=== PATIENT | female | born 1950 | race Caucasian/White ===

== ENCOUNTER 2018-05-21 12:25 | Emergency (ER) | payer MEDICARE, MEDICAID, SELFPAY ==
[2018-05-21 13:01] VITALS: BP 129/76; PULSE 87; RESP 20; TEMP 38; O2SAT 97
--- NOTE | 2018-05-21 13:25 | DI.RAD.S_ITS ---
PROCEDURE: XR CHEST 2V INDICATIONS: cough TECHNIQUE: 2 views of the chest were acquired. COMPARISON: None. FINDINGS: Surgical changes and devices: Spine fixation hardware. Lungs and pleura: Lungs are clear. No pleural effusions or pneumothorax. Lungs hyperinflated suggesting COPD. Mediastinum: Mediastinal contours are normal. Heart size is normal. Bones and chest wall: No suspicious bony abnormalities. Soft tissues appear unremarkable. IMPRESSION: No acute cardiopulmonary disease process. Dictated by: Aranza Mcgarry MD, PhD on 05/21/2018 at 13:54 Approved by: Aranza Mcgarry MD, PhD on 05/21/2018 at 13:54
--- NOTE | 2018-05-21 14:14 | ED.SOB ---
HPI - SOB/Dyspnea <Rosa Maria Duncan PA-C - Last Filed: 05/21/18 22:06> General Chief Complaint: Shortness of Breath/Dyspnea Stated Complaint: cough,trouble breathing,not sleeping,weight loss Time Seen by Provider: 05/21/18 14:10 Source: patient Mode of arrival: ambulatory Limitations: no limitations History of Present Illness This 67-year-old female comes to ED secondary to the day history of sudden onset of body aches, chills and sweats, and hoarse cough. She states that she feels like she is congested deep in her chest but rarely able to bring up sputum. She states she is tired because she is up all night coughing, and all day as well. She states that she has not checked her temperature. She states that she does have a history of reactive airways rarely in the past needing an inhaler, but does feel like she has been more short of breath with this illness. She states that her left ear is a little bit congested otherwise no sore throat, earache, etc. She denies any other new complaints such as chest pain or rash. She states her breathing feels improved after nebulizer treatment. Related Data Home Medications Medication Instructions Recorded Confirmed gabapentin [Neurontin] 300 mg PO TID #0 09/26/10 05/21/18 alprazolam 0.25 mg PO BEDTIME 05/21/18 05/21/18 alprazolam 0.5 mg PO BID 05/21/18 05/21/18 bupropion HCl 100 mg PO BID 05/21/18 05/21/18 fluticasone 1 spray INTRANASAL DIRECTED 05/21/18 05/21/18 paroxetine HCl 40 mg PO DAILY 05/21/18 05/21/18 trazodone 100 mg PO BEDTIME 05/21/18 05/21/18 Previous Rx's Medication Instructions Recorded albuterol sulfate 2 inhalation INHALATION Q4H PRN 05/21/18 #8.5 gram oseltamivir [Tamiflu] 75 mg PO Q12H 5 Days #10 cap 05/21/18 promethazine-codeine 5 ml PO Q4-6H PRN #118 ml 05/21/18 Allergies Allergy/AdvReac Type Severity Reaction Status Date / Time quinine [QUININE] Allergy Unknown Unverified 06/17/17 12:57 KIWI Allergy Severe ANAPHYLAXIS Uncoded 06/17/17 12:57 JOYCE Allergy Severe ANAPHYLAXIS Uncoded 06/17/17 12:57 MSG AdvReac Intermediate DIARRHEA Uncoded 06/17/17 12:57 METAL AdvReac Mild RASH Uncoded 06/17/17 12:57 Review of Systems <Rosa Maria Duncan PA-C - Last Filed: 05/21/18 22:06> Review of Systems ROS Unobtainable: All systems reviewed & are unremarkable except as noted in HPI and below PFSH <Rosa Maria Duncan PA-C - Last Filed: 05/21/18 22:06> Medical History Chronic pain syndrome (Acute) Reactive airways dysfunction syndrome (Acute) Surgical History History of tonsillectomy Status post delivery Status post hysterectomy Social History Smoking Status: Former smoker Social History Smoking Status: Former smoker Exam <Rosa Maria Duncan PA-C - Last Filed: 05/21/18 22:06> Narrative Exam Narrative: GENERAL APPEARANCE: Diminutive female sitting comfortably HEAD: No sinus TTP. EYES: PERRL, EOMI. EARS: Normal auditory canals, TMS intact, partly occluded by cerumen ORAL CAVITY: Normal oropharynx. THROAT: Mild erythema, PND noted, no exudate NECK/THYROID: Neck supple, full range of motion, no cervical lymphadenopathy. LUNGS: Initially some generalized wheezes and rhonchi without crackles, coarse cough on exam. Following nebulizer treatment mild expiratory wheeze with good air entry, occasional cough HEART: RRR without murmur, nl S1, S2, no S3 or S4. EXTREMITIES: No edema, no calf tenderness DERMATOLOGIC: No exanthem Initial Vital Signs Initial Vital Signs: Vital Signs Temperature 100.4 F H 05/21/18 13:01 Pulse Rate 87 05/21/18 13:01 Respiratory Rate 20 05/21/18 13:01 Blood Pressure 129/76 05/21/18 13:01 Pulse Oximetry 97 05/21/18 13:01 <Linda Hanna DO - Last Filed: 05/22/18 08:50> Initial Vital Signs Initial Vital Signs: Vital Signs Temperature 100.4 F H 05/21/18 13:01 Pulse Rate 87 05/21/18 13:01 Respiratory Rate 20 05/21/18 13:01 Blood Pressure 129/76 05/21/18 13:01 Pulse Oximetry 97 05/21/18 13:01 Course <Rosa Maria Duncan PA-C - Last Filed: 05/21/18 22:06> Orders Ordered: Discontinued Medications Albuterol/Ipratropium (Duoneb) 3 ml INH Q1H PRN PRN Reason: Shortness Of Breath Last Admin: 05/21/18 14:58 Dose: 3 ml Vital Signs - 8 hr 05/21/18 14:16 05/21/18 15:05 05/21/18 16:05 Temperature 98.1 F 98.2 F Pulse Rate 88 77 93 H Respiratory Rate 18 20 18 Blood Pressure 130/74 Blood Pressure [Left Arm] 164/88 H Pulse Oximetry 95 98 96 <Linda Hanna DO - Last Filed: 05/22/18 08:50> Orders Ordered: Discontinued Medications Albuterol/Ipratropium (Duoneb) 3 ml INH Q1H PRN PRN Reason: Shortness Of Breath Last Admin: 05/21/18 14:58 Dose: 3 ml Vital Signs - 8 hr 05/21/18 14:16 05/21/18 15:05 05/21/18 16:05 Temperature 98.1 F 98.2 F Pulse Rate 88 77 93 H Respiratory Rate 18 20 18 Blood Pressure 130/74 Blood Pressure [Left Arm] 164/88 H Pulse Oximetry 95 98 96 MDM - SOB/Dyspnea <Rosa Maria Duncan PA-C - Last Filed: 05/21/18 22:06> Lab Data Lab Results 05/21/18 Range/Units 13:00 Influenza A & B (PCR) Positive, type a A (Negative) Imaging Data Chest x-ray: Radiologist's impression: KongHarmony E 67 F 1950 [address] [address] XRay Report Signed Patient: Harmony Kong EMR#: [id number] : 1950Acct:[id number] Age/Sex: 67 / FDate of Service: 05/21/18 Loc: ED Accession Number: [id number] Procedure: XR chest 2V Ordering Provider: Rosa Maria Duncan P.A-C PROCEDURE: XR CHEST 2V INDICATIONS: cough TECHNIQUE: 2 views of the chest were acquired. COMPARISON: None. FINDINGS: Surgical changes and devices: Spine fixation hardware. Lungs and pleura: Lungs are clear. No pleural effusions or pneumothorax. Lungs hyperinflated suggesting COPD. Mediastinum: Mediastinal contours are normal. Heart size is normal. Bones and chest wall: No suspicious bony abnormalities. Soft tissues appear unremarkable. IMPRESSION: No acute cardiopulmonary disease process. Dictated by: Aranza Mcgarry MD, PhD on 05/21/2018 at 13:54 Approved by: Aranza Mcgarry MD, PhD on 05/21/2018 at 13:54 <Linda C Jacques, DO - Last Filed: 05/22/18 08:50> Lab Data Lab Results 05/21/18 Range/Units 13:00 Influenza A & B (PCR) Positive, type a A (Negative) Discharge Plan Departure Patient Disposition: Home Clinical Impression: Influenza A, Mild intermittent reactive airways dysfunction syndrome with acute exacerbation Discharge Date/Time: 05/21/18 16:05 Interventions: ED Discharge Assessment Last Done: 05/21/18 16:05 Activity Restrictions/Additional Instructions: Please return as we talked about if you have acutely worsening symptoms, i.e. high fever not responding to [id number] medicines, difficulty breathing not responding to your inhaler, etc. Otherwise, please rest at home. You can use the prescription cough syrup as needed to help sleep. You may also wish to try Mucinex twice daily which is an expectorant and may help loosen up your lung congestion. Please use the inhaler as often as needed to help your type chest and wheeze. This may help your cough as well since you do have some airway sensitivity/reactive airways. Start the influenza medicine as soon as you pick it up and take it for 5 days. Prescriptions: New promethazine-codeine 6.25-10 mg/5 mL syrup 5 ml PO Q4-6H PRN (Reason: cough) Qty: 118 RF: 0 oseltamivir [Tamiflu] 75 mg capsule 75 mg PO Q12H 5 Days Qty: 10 RF: 0 albuterol sulfate 90 mcg/actuation HFA aerosol inhaler 2 inhalation INHALATION Q4H PRN (Reason: cough/shortness of breath) Qty: 8.5 RF: 0 No Action gabapentin [Neurontin] 300 MG capsule 300 mg PO TID Qty: 0 RF: 0 bupropion HCl 100 mg tablet sustained-release 12 hr 100 mg PO BID RF: 0 alprazolam 0.5 mg tablet 0.5 mg PO BID RF: 0 alprazolam 0.5 mg tablet 0.25 mg PO BEDTIME RF: 0 trazodone 100 mg tablet 100 mg PO BEDTIME RF: 0 paroxetine HCl 40 mg tablet 40 mg PO DAILY RF: 0 fluticasone 50 mcg/actuation spray,suspension 1 spray Intranasal DIRECTED RF: 0 Referrals: Art Phillip MD [Primary Care Provider] - <Linda Hanna DO - Last Filed: 05/22/18 08:50> Cosign ED Attending Cosignature Attestation: I was immediately available in the department for consultation. This documentation has been reviewed and I agree with assessment and plan. Supervised by Linda Hanna DO
[2018-05-21 14:16] VITALS: BP 164/88; PULSE 88; RESP 18; TEMP 36.7; O2SAT 95
[2018-05-21] MEDS: ALBUTEROL/IPRATROPIUM 3 ML AMPUL INH (14:58)
[2018-05-21 15:05] VITALS: PULSE 77; RESP 20; O2SAT 98
[2018-05-21 16:05] VITALS: BP 130/74; PULSE 93; RESP 18; TEMP 36.8; O2SAT 96
== END 2018-05-21 16:05 | disposition home or self-care (01) ==
PROVIDERS: Emergency Provider Internal Medicine; Family Provider Family Medicine; PCP Family Medicine
DX: J10.1 Influenza due to other identified influenza virus with other respiratory manifestations (principal); J68.3 Other acute and subacute respiratory conditions due to chemicals, gases, fumes and vapors
CPT/HCPCS: 71046; 87400; 94640; 99282; 99284

== ENCOUNTER 2018-08-18 14:27 | Emergency (ER) | payer MEDICARE, MEDICAID, SELFPAY ==
--- NOTE | 2018-08-18 14:29 | ED_ITS ---
HPI - Extremity Injury (Lower) General Chief Complaint: Extremity Injury, Lower Stated Complaint: Twisted Lt Foot Time Seen by Provider: 08/18/18 14:28 Source: patient Mode of arrival: wheelchair Limitations: no limitations History of Present Illness HPI Narrative: [age] year female here for evaluation of left foot injury. Patient states she injured approximately 1 hour prior to arrival here in the emergency department. She states she twisted her ankle. No other injuries reported from the event. Related Data Home Medications Medication Instructions Recorded Confirmed gabapentin [Neurontin] 300 mg PO TID #0 09/26/10 05/21/18 alprazolam 0.25 mg PO BEDTIME 05/21/18 05/21/18 alprazolam 0.5 mg PO BID 05/21/18 05/21/18 bupropion HCl 100 mg PO BID 05/21/18 05/21/18 fluticasone propionate 1 spray INTRANASAL DIRECTED 05/21/18 05/21/18 paroxetine HCl 40 mg PO DAILY 05/21/18 05/21/18 trazodone 100 mg PO BEDTIME 05/21/18 05/21/18 Previous Rx's Medication Instructions Recorded albuterol sulfate 2 inhalation INHALATION Q4H PRN 05/21/18 #8.5 gram promethazine-codeine 5 ml PO Q4-6H PRN #118 ml 05/21/18 tramadol 50 mg PO TID PRN #10 tab 08/18/18 Allergies Allergy/AdvReac Type Severity Reaction Status Date / Time quinine [QUININE] Allergy Unknown Verified 08/18/18 14:32 KIWI Allergy Severe ANAPHYLAXIS Uncoded 06/17/17 12:57 JOYCE Allergy Severe ANAPHYLAXIS Uncoded 06/17/17 12:57 MSG AdvReac Intermediate DIARRHEA Uncoded 06/17/17 12:57 METAL AdvReac Mild RASH Uncoded 06/17/17 12:57 Review of Systems Constitutional Denies headache(s) ENT Ears, Nose, Mouth, and Throat: Denies headache(s) Cardiovascular Denies chest pain and Denies dyspnea Respiratory Denies dyspnea Gastrointestinal Gastrointestinal: Denies abdominal pain Musculoskeletal Denies tingling Comments: Left foot pain Integumentary/Breasts Comments: Bruising around the left foot Neurologic Denies headache(s) and Denies tingling Hematologic/Lymphatic Denies easy bleeding [facility] Medical History Chronic pain syndrome (Acute) Reactive airways dysfunction syndrome (Acute) Surgical History (Updated 07/07/17 @ 06:20 by Conversion Provider) History of tonsillectomy Status post delivery Status post hysterectomy Social History Smoking Status: Former smoker Social History Smoking Status: Former smoker Exam Initial Vital Signs Initial Vital Signs: Vital Signs Temperature 97.4 F L 08/18/18 14:30 Pulse Rate 85 08/18/18 14:30 Respiratory Rate 14 08/18/18 14:30 Blood Pressure 135/74 08/18/18 14:30 Pulse Oximetry 95 08/18/18 14:30 Resp Effort & Inspection: normal respiratory effort Skin Other: Bruising on the dorsum aspect the left foot from the 3rd toe laterally. Neuro Other: Sensation to light touch left lower extremity Extrem Other: Left proximal fibula unremarkable. Left ankle unremarkable. Patient is tender to palpation along the dorsum in the lateral aspect of her left foot and along the base of her 5th metatarsal. Procedures Orthopedic Splinting/Casting Injury #1: Side: left Lower Extremity Injury Location: foot Lower Extremity Immobilizer: posterior splint Other Orthopedic Equipment: crutches Post splinting neuro exam: intact and no change Post splinting vascular exam: intact Placed by: Nursing Course Orders Ordered: ED Orders 08/18/18 14:30 XR foot LT min 3V Stat Discontinued Medications Ibuprofen (Advil) 400 mg PO NOW ONE Stop: 08/18/18 14:32 Last Admin: 08/18/18 14:39 Dose: 400 mg Vital Signs - 8 hr 08/18/18 14:30 Temperature 97.4 F L Pulse Rate 85 Respiratory Rate 14 Blood Pressure 135/74 Pulse Oximetry 95 MDM - Extremity Injury (Lower) Imaging Data Foot x-ray: Radiologist's impression: [address] [address] XRay Report Signed Patient: Harmony Kong EMR#: [id number] : 1950Acct:[id number] Age/Sex: 67 / FDate of Service: 08/18/18 Loc: ED Accession Number: [id number] Procedure: XR foot LT min 3V Ordering Provider: Lee Galdamez D.O. PROCEDURE: XR FOOT LT MIN 3V INDICATIONS: Lateral foot pain after injury TECHNIQUE: 3 views of the foot were acquired. COMPARISON: None. FINDINGS: Bones: There is a mildly displaced fracture of the distal 5th metatarsal diaphysis. Soft tissues: No tibiotalar joint effusion. Achilles tendon appears normal. IMPRESSION: Mildly displaced 5th metatarsal fracture. Dictated by: Tay English M.D. on 08/18/2018 at 14:53 Approved by: Tay English M.D. on 08/18/2018 at 14:54 [facility] Narrative Medical decision making narrative: Patient is neurovascularly intact. X-ray shows a fracture of the 5th metatarsal. She is placed in a posterior splint and placed in crutches. Given follow-up instructions and return precautions. She expressed understanding and agreement with plan. Discharge Plan Departure Patient Disposition: Home Clinical Impression: Foot fracture, left Qualifiers: Encounter type: initial encounter Fracture type: closed Qualified Code(s): S92.902A - Unspecified fracture of left foot, initial encounter for closed fracture Instructions: How to Use Crutches, DI for Foot Fracture, How to Take Care of Your Splint Activity Restrictions/Additional Instructions: You do need to stay off of your foot and use the crutches. This splint needs to stay on and stay clean and stay dry. Contact Dr. Phillip his office for a follow-up. Also contact the [facility] at [phone] for follow-up. Return to the emergency department for any new or worsening symptoms Prescriptions: New tramadol 50 mg tablet 50 mg PO TID PRN (Reason: pain) Qty: 10 RF: 0 No Action gabapentin [Neurontin] 300 MG capsule 300 mg PO TID Qty: 0 RF: 0 bupropion HCl 100 mg tablet sustained-release 12 hr 100 mg PO BID RF: 0 alprazolam 0.5 mg tablet 0.5 mg PO BID RF: 0 alprazolam 0.5 mg tablet 0.25 mg PO BEDTIME RF: 0 trazodone 100 mg tablet 100 mg PO BEDTIME RF: 0 paroxetine HCl 40 mg tablet 40 mg PO DAILY RF: 0 fluticasone propionate 50 mcg/actuation spray,suspension 1 spray Intranasal DIRECTED RF: 0 promethazine-codeine 6.25-10 mg/5 mL syrup 5 ml PO Q4-6H PRN (Reason: cough) Qty: 118 RF: 0 albuterol sulfate 90 mcg/actuation HFA aerosol inhaler 2 inhalation INHALATION Q4H PRN (Reason: cough/shortness of breath) Qty: 8.5 RF: 0 Referrals: Art Phillip MD [Primary Care Provider] -
[2018-08-18 14:30] VITALS: BP 135/74; PULSE 85; RESP 14; TEMP 36.3; O2SAT 95; BMI 14.8
[2018-08-18] MEDS: IBUPROFEN 400 MG TABLET PO (14:39)
--- NOTE | 2018-08-18 14:44 | PC.NURSE ---
Ice pack offered and pt refused as iced it at home and its still cold.
== END 2018-08-18 15:30 | disposition home or self-care (01) ==
PROVIDERS: Emergency Provider Emergency Medicine; Family Provider Family Medicine; PCP Family Medicine
DX: S92.902A Unspecified fracture of left foot, initial encounter for closed fracture (principal)
CPT/HCPCS: 29515; 73630; 99282; 99283

== ENCOUNTER → 2020-05-23 13:36 | Outpatient (CLI) | payer MEDICARE, MEDICAID, SELFPAY ==
[2020-05-23] MEDS: COVID-19 VACC #1, MRNA(MOD) 100 MCG/0.5 ML VIAL IM (13:49)
== END ==
PROVIDERS: Family Provider Family Medicine; PCP Family Medicine; Visit Provider Internal Medicine
DX: Z23 Encounter for immunization (principal)
CPT/HCPCS: 0011A; 91301

== ENCOUNTER → 2020-06-20 13:09 | Outpatient (CLI) | payer MEDICARE, MEDICAID, SELFPAY ==
[2020-06-20] MEDS: COVID-19 VACC #2, MRNA(MOD) 100 MCG/0.5 ML VIAL IM (13:26)
== END ==
PROVIDERS: Family Provider Family Medicine; PCP Family Medicine; Visit Provider Internal Medicine
DX: Z23 Encounter for immunization (principal)
CPT/HCPCS: 0012A; 91301

== ENCOUNTER → 2020-09-07 13:33 | Outpatient (CLI) | payer MEDICARE, MEDICAID, SELFPAY ==
--- NOTE | 2020-09-07 | DI.CT.S_ITS ---
PROCEDURE: CT CHEST WO CON INDICATIONS: Cough TECHNIQUE: Noncontrast 5 mm thick sections acquired from the pulmonary apices to the posterior costophrenic angles. 1 mm lung window, 5 mm thick coronal and sagittal and 7 mm axial MIP reformats were then acquired. For radiation dose reduction, the following was used: automated exposure control, adjustment of mA and/or kV according to patient size. COMPARISON: None. FINDINGS: Image quality: Excellent. Lungs and pleura: Lung nodules are present: Nodule 1: 3 mm; right upper lobe; series 3, image 145; solid. Nodule 2: 5 mm; right upper lobe; series 3 image 156; ground-glass. Mild emphysema. Subpleural septal thickening and mild pulmonary fibrosis in right upper lobe. No acute air space opacities. No pleural effusions or pneumothorax. Central and peripheral airways are patent and normal in caliber. Mediastinum: Heart size is normal. No pericardial effusion. Severe coronary artery calcification. No mediastinal adenopathy by size criteria. Thoracic aorta and central pulmonary arteries are normal in size. Esophagus is normal in caliber. No hiatal hernia. Bones and chest wall: No suspicious bony lesions. No vertebral body compression fractures. No axillary or supraclavicular adenopathy by size criteria. Thyroid gland is unremarkable. Abdomen: Visualized upper abdominal solid organs and bowel loops appear normal in the absence of contrast. IMPRESSION: 1. There are a couple of lung nodules in right upper lobe. Please see enclosed follow-up recommendation. 2. Mild emphysema. 3. Subpleural septal thickening and mild pulmonary fibrosis in right upper lobe. 4. Severe coronary artery calcification. Fleischner Society criteria for SOLID lung nodule followup. Nodule size (mm)Low-risk patientHigh-risk patient?4No follow-up neededFollow-up at 12 mo; if no change, no further follow-up>[id number] CT at 12 mo; if no change, no further follow-up needed.Initial follow-up CT at 6-12 mo, then 18-24 mo if no change. >6-8Initial follow-up CT at 6-12 mo, then 18-24 mo if no change. Initial follow-up CT at 3-6 mo, then 9-12 mo and 24 mo if no change. >8Follow-up CT at 3, 9, 24 mo. Or PET and/or biopsy.Same as for low-risk pts. Fleischner Society criteria for SUB-SOLID lung nodule followup. Solitary pure ground-glass nodules5 mm or lessNo followup needed. >5 mm3 mo follow-up CT to confirm persistence. Then annual CT for 3 years. Part-solid nodules3 mo follow-up CT to confirm persistence. If persistent with solid component <5 mm, annual CT for at least 3 years. If solid component is 5 mm or more, biopsy or surgical resection. Consider PET-CT for lesions > 10 mm. Multiple sub-solid nodulesPure ground glass nodules [address] at 2 and 4 years. Pure ground glass nodules >5 mm without dominant lesion. [address] to confirm persistence, then annual followup CT for at least 3 years. Dominant nodule(s) with part-solid or solid component. [address] to confirm persistence. If persistent, consider biopsy or surgical resection, deepak if lesions have >5 mm solid component. Dictated by: Richard Hastings M.D. on 09/07/2020 at 16:40 Approved by: Richard Hastings M.D. on 09/07/2020 at 18:11
== END ==
PROVIDERS: Family Provider Family Medicine; PCP Family Medicine; Referring Provider Family Medicine; Visit Provider Family Medicine
DX: R05 Cough (principal); R91.8 Other nonspecific abnormal finding of lung field; J43.9 Emphysema, unspecified; J84.10 Pulmonary fibrosis, unspecified; I25.10 Atherosclerotic heart disease of native coronary artery without angina pectoris
CPT/HCPCS: 71250

== ENCOUNTER → 2020-11-30 09:54 | Outpatient (CLI) | payer MEDICARE, MEDICAID, SELFPAY ==
--- NOTE | 2020-11-30 | DI.RAD.S_ITS ---
PROCEDURE: XR RIBS RT MIN 3V W CXR 1V INDICATIONS: Rib pain TECHNIQUE: 3 views of the right ribs were acquired, along with a single view chest. COMPARISON: [facility], CT, CT CHEST WO CON, 09/07/2020, 13:55. FINDINGS: Surgical changes and devices: ACDF. Right shoulder anchors. Bones and chest wall: No fractures or dislocations. No suspicious bony lesions. Mild scoliosis. Overlying soft tissues appear unremarkable. Lungs and pleura: No pleural effusions or pneumothorax. Lungs appear clear. Mediastinum: Mediastinal contours appear normal. Heart size is normal. IMPRESSION: No displaced right rib fracture. Lungs are clear. Dictated by: Travon Steele M.D. on 11/30/2020 at 10:19 Approved by: Travon Steele M.D. on 11/30/2020 at 10:21
== END ==
PROVIDERS: Family Provider Family Medicine; PCP Family Medicine; Referring Provider Family Medicine; Visit Provider Family Medicine
DX: R07.81 Pleurodynia (principal); Z98.1 Arthrodesis status
CPT/HCPCS: 71101

== ENCOUNTER 2022-01-15 17:15 | Emergency (ER) | payer MEDICARE, MEDICAID, SELFPAY ==
[2022-01-15 17:22] VITALS: BP 133/71; PULSE 97; RESP 20; TEMP 36.4; O2SAT 97
--- NOTE | 2022-01-15 17:25 | DI.CT.S_ITS ---
PROCEDURE: CT HEAD/BRAIN WO CON INDICATIONS: fall TECHNIQUE: Noncontrast 4.5 mm thick angled axial sections acquired from the foramen magnum to the vertex, with coronal and sagittal reformats. For radiation dose reduction, the following was used: automated exposure control, adjustment of mA and/or kV according to patient size. COMPARISON: [facility], CT, HEAD WITHOUT CONTRAST, 06/03/2010, 10:47. FINDINGS: Image quality: Excellent. CSF spaces: Basal cisterns are patent. No extra-axial fluid collections. Ventricles are normal in size and shape. Brain: No midline shift. No intracranial masses or hemorrhage. Bellamy-white matter interface is normal. Skull and face: Calvarium and visualized facial bones are intact, without suspicious lesions. Sinuses: Visualized sinuses and mastoids are clear. IMPRESSION: Normal CT of the brain Approved by: Troy Buenrostro M.D. on 01/15/2022 at 17:36
--- NOTE | 2022-01-15 17:25 | DI.CT.S_ITS ---
PROCEDURE: CT CERVICAL SPINE WO CON INDICATIONS: fall TECHNIQUE: Noncontrast 3 mm thick sections acquired from the skull base to the T4 level. Sagittal and coronal reformats were then constructed. For radiation dose reduction, the following was used: automated exposure control, adjustment of mA and/or kV according to patient size. COMPARISON: None. FINDINGS: Image quality: Excellent. Bones: No fractures or dislocations. Visualized superior ribs are intact. Well-healed C4-5 interbody fusion. There is also interbody fusion at C5-6 and C6-7 with persistent lucency around the interbody grafts. Anterior plate and screw hardware is present. There is periprosthetic lucency around the C6 screws as well. C3-4 disc space narrowing with hypertrophic facet joints results in moderate central and bilateral foraminal stenosis. Soft tissues: Prevertebral soft tissues are normal in thickness. No paravertebral hematomas. No apical pneumothoraces. IMPRESSION: 1. No evidence of fracture or malalignment. 2. C5-6 and C6-7 with suboptimal graft incorporation and evidence of loosening of the C6 anterior screws. Approved by: Troy Buenrostro M.D. on 01/15/2022 at 17:33
[2022-01-15 20:26] VITALS: BP 181/86; PULSE 103; RESP 14; TEMP 36.6; O2SAT 98
[2022-01-15] MEDS: ACETAMINOPHEN 325 MG TABLET 650 MG PO (21:12)
--- NOTE | 2022-01-15 21:31 | ED.HEATRA ---
HPI - Head Injury General Chief complaint: Head Injury Stated complaint: head pain for a week Time Seen by Provider: 01/15/22 20:59 Source: patient Mode of arrival: Wheelchair History of Present Illness HPI Narrative: Patient is a 71-year-old female history of COPD presenting today after ground level mechanical fall 5 days ago. She hit her head he not pass out that she knows of she has not had any nausea or vomiting. He has had persistent headache. No numbness tingling or weakness. However she is now complaining of dizziness and maybe some shortness of breath. She has a history of vertigo she says this is not her normal vertigo. She has had head CT and a CT cervical spine which are both negative. She states that she has been taking 15x 500 mg tablets of Tylenol a day. She denies any abdominal pain nausea vomiting. Related Data Home Medications Medication Instructions Recorded Confirmed gabapentin 300 mg capsule 300 mg PO TID ##0 09/26/10 05/21/18 (Neurontin) alprazolam 0.5 mg tablet 0.25 mg PO BEDTIME 05/21/18 05/21/18 alprazolam 0.5 mg tablet 0.5 mg PO BID 05/21/18 05/21/18 bupropion HCl 100 mg tablet,12 hr 100 mg PO BID 05/21/18 05/21/18 sustained-release fluticasone propionate 50 1 spray intranasal DIRECTED 05/21/18 05/21/18 mcg/actuation nasal spray,suspension paroxetine HCl 40 mg tablet 40 mg PO DAILY 05/21/18 05/21/18 trazodone 100 mg tablet 100 mg PO BEDTIME 05/21/18 05/21/18 Previous Rx's Medication Instructions Recorded albuterol sulfate 90 mcg/actuation 2 inhalation inhalation Q4H PRN 05/21/18 aerosol inhaler cough/shortness of breath #8.5 grams promethazine 6.25 mg-codeine 10 5 ml PO Q4-6H PRN cough #118 mL 05/21/18 mg/5 mL syrup acetaminophen 300 mg-codeine 30 mg 1 tab PO Q4-6H PRN pain #10 tabs 08/18/18 tablet (Tylenol-Codeine #3) tramadol 50 mg tablet 50 mg PO TID PRN pain #10 tabs 08/18/18 Allergies Allergy/AdvReac Type Severity Reaction Status Date / Time quinine [QUININE] Allergy Unknown Verified 08/18/18 14:32 tramadol Allergy Verified 08/18/18 15:24 KIWI Allergy Severe ANAPHYLAXIS Uncoded 06/17/17 12:57 JOYCE Allergy Severe ANAPHYLAXIS Uncoded 06/17/17 12:57 MSG AdvReac Intermediate DIARRHEA Uncoded 06/17/17 12:57 METAL AdvReac Mild RASH Uncoded 06/17/17 12:57 Review of Systems Review of Systems Narrative: GENERAL: Denies chills, fatigue, malaise, fever, sweats, travel HEENT: Denies sinus pain, ear pain, sore throat, difficulty swallowing, neck pain RESPIRATORY: Denies dyspnea, cough, wheezing, hemoptysis, sputum. CARDIOVASCULAR: Denies chest pain, palpitations, orthopnea, edema GASTROINTESTINAL: Denies nausea, vomiting, abdominal pain, diarrhea, constipation, melena. : Denies dysuria, frequency, incontinence, hematuria, urinary retention, flank pain. MUSCULOSKELETAL: Denies weakness, joint pain, or bony pain SKIN: No rash, no erythema, no pruritus NEUROLOGIC: See HPI PSYCHIATRIC: No concerning psychosocial issues. 12 point review of systems is negative except for those stated above and HPI Patient History Medical History (Updated 01/15/22 @ 23:08 by Aleyda Galindo DO) Chronic pain syndrome Reactive airways dysfunction syndrome Surgical History History of tonsillectomy Status post delivery Status post hysterectomy Social History Smoking Status: Former smoker Smoking Status: Former smoker alcohol intake frequency: holidays/special occasions only Substance Use Type: marijuana Exam Initial Vital Signs Initial Vital Signs: Vital Signs Temperature 97.5 F L 01/15/22 17:22 Pulse Rate 97 H 01/15/22 17:22 Respiratory Rate 20 01/15/22 17:22 Blood Pressure 133/71 01/15/22 17:22 Pulse Oximetry 97 01/15/22 17:22 Oxygen Delivery Method 01/15/22 17:22 GENERAL: Alert pleasant anxious thin 71-year-old HEENT: Head atraumatic,EOMI, pupils reactive, face symmetric, moist mucous membranes NECK: No vertebral tenderness no step-off full range normal CARDIOVASCULAR: Regular rate and rhythm without murmurs, rubs or gallops. RESPIRATORY: Breath sounds equal bilaterally, no wheezes rales or rhonchi. ABDOMEN: Soft, nontender. Normoactive bowel sounds all 4 quadrants. No guarding or rebound. EXTREMITIES: Normal range of motion, no clubbing or edema. Neurovascularly intact NEUROLOGICAL: Alert and oriented x4.Normal gait and speech. Supplemental Manager strength equal bilaterally moving all extremities SKIN: Warm, dry, no laceration, no petechiae, no rashes or lesions. Course Orders Ordered: ED Orders 01/15/22 21:38 EKG-12 Lead Stat 01/15/22 22:00 Acetaminophen Stat CBC Auto Diff [Complete Blood Count AUTO DIFF] Stat CMP [Comprehensive Metabolic Panel] Stat Troponin & CK Cardiac Panel Stat Discontinued Medications Acetaminophen (Acetaminophen 325 Mg Tablet) 650 mg PO NOW ONE Stop: 01/15/22 20:20 Last Admin: 01/15/22 21:12 Dose: 650 mg Documented By: CAMILLA Albuterol/Ipratropium (Albuterol/Ipratropium 3 Ml Ampul) 3 ml INH NOW ONE Stop: 01/15/22 21:39 Last Admin: 01/15/22 22:09 Dose: 3 ml Documented By: JOHN Vital Signs Vital signs: Vital Signs - 8 hr 01/15/22 20:26 01/15/22 22:10 01/15/22 23:22 Temperature 97.8 F Pulse Rate 103 H 99 H 90 Respiratory Rate 14 20 16 Blood Pressure 181/86 H 137/69 Pulse Oximetry 98 99 96 Oxygen Delivery Method Room Air Room Air MDM - Head Injury Lab Data Result diagrams: 01/15/22 22:00 01/15/22 22:00 Labs: Lab Results 01/15/22 01/15/22 Range/Units 22:00 22:00 WBC 7.5 (4.5-11.0) X10^3/uL RBC 3.87 L (4.0-5.2) X10^6/uL Hgb 9.9 L (12.0-16.0) g/dL Hct 31.3 L (36-46) % MCV 80.7 (80-100) fL MCH 25.5 L (26-34) PG MCHC 31.5 (30-36) % RDW 16.5 H (11.6-14.8) % Plt Count 380 (150-400) X10^3/uL Neut % (Auto) 52.8 (50-75) % Lymph % (Auto) 35.3 (25-40) % Richardson % (Auto) 9.6 (3-14) % Eos % (Auto) 1.7 L (2-4) % Baso % (Auto) 0.6 (0-2) % Neut # (Auto) 4000 (2461-7952) /uL Lymph # (Auto) 2700 (4020-3742) /uL Richardson # (Auto) 700 (0-900) /uL Eos # (Auto) 100 (0-450) /uL Baso # (Auto) 0 (0-100) /uL Sodium 137 (137-145) mmol/L Potassium 3.6 (3.4-5.1) mmol/L Chloride 104 (98-107) mmol/L Carbon Dioxide 25 (22-32) mmol/L BUN 16 (7-17) mg/dL Creatinine 0.49 L (0.52-1.04) mg/dL Estimated GFR > 60 (>60) mL/min BUN/Creatinine Ratio 32.7 H (6-22) Glucose 132 H (80-110) mg/dL Calcium 9.1 (8.4-10.2) mg/dL Total Bilirubin 0.2 (0.2-1.3) mg/dL AST 32 (14-36) IU/L ALT 24 (<35) IU/L Alkaline Phosphatase 73 (38-126) U/L Total Creatine Kinase 62 (30-135) U/L CK-MB (CK-2) TNP CK-MB (CK-2) Rel Index TNP Troponin I < 0.012 (0.01-0.034) ng/mL Total Protein 7.7 (6.3-8.2) g/dL Albumin 4.5 (3.5-5.0) g/dL Globulin 3.2 (1.7-4.1) g/dL Albumin/Globulin Ratio 1.4 (1.0-2.8) Acetaminophen < 10 (10-30) ug/mL Imaging Data CT - cervical spine: Radiologist's Impression: [facility] [place] [address] CT Scan Report Signed Patient: Harmony Kong MR#: [id number] : 1950 Acct:[id number] Age/Sex: 71 / F Date of Service: 01/15/22 Loc: ED Accession Number: [id number] ?? Procedure: CT cervical spine wo con Ordering Provider: Lee Galdamez D.O. PROCEDURE:? CT CERVICAL SPINE WO CON ? INDICATIONS:? fall ? TECHNIQUE:? Noncontrast 3 mm thick sections acquired from the skull base to the T4 level.? Sagittal and coronal reformats were then constructed.? For radiation dose reduction, the following was used:? automated exposure control, adjustment of mA and/or kV according to patient size.? ? COMPARISON:? None. ? FINDINGS:? Image quality:? Excellent.? ? Bones:? No fractures or dislocations.? Visualized superior ribs are intact.? ? Well-healed C4-5 interbody fusion.? There is also interbody fusion at C5-6 and C6-7 with persistent lucency around the interbody grafts.? Anterior plate and screw hardware is present.? There is periprosthetic lucency around the C6 screws as well. ? C3-4 disc space narrowing with hypertrophic facet joints results in moderate central and bilateral foraminal stenosis. ? Soft tissues:? Prevertebral soft tissues are normal in thickness.? No paravertebral hematomas.? No apical pneumothoraces.? ? ? IMPRESSION:? ? 1. No evidence of fracture or malalignment. ? 2. C5-6 and C6-7 with suboptimal graft incorporation and evidence of loosening of the C6 anterior screws.? Approved by: Troy Buenrostro M.D. on 01/15/2022 at 17:33? CT scan - head: Radiologist's Impression: [address] [address] [address] Scan Report Signed Patient: Harmony Kong MR#: [id number] : 1950 Acct:[id number] Age/Sex: 71 / F Date of Service: 01/15/22 Loc: ED Accession Number: [id number] ?? Procedure: CT head/brain wo con Ordering Provider: Lee Galdamez D.O. PROCEDURE:? CT HEAD/BRAIN WO CON ? INDICATIONS:? fall ? TECHNIQUE:? Noncontrast 4.5 mm thick angled axial sections acquired from the foramen magnum to the vertex, with coronal and sagittal reformats.? For radiation dose reduction, the following was used:? automated exposure control, adjustment of mA and/or kV according to patient size.? ? COMPARISON:? [facility], CT, HEAD WITHOUT CONTRAST, 06/03/2010, 10:47. ? FINDINGS:? Image quality:? Excellent.? ? CSF spaces:? Basal cisterns are patent.? No extra-axial fluid collections.? Ventricles are normal in size and shape.? ? Brain:? No midline shift.? No intracranial masses or hemorrhage.? Bellamy-white matter interface is normal.? ? Skull and face:? Calvarium and visualized facial bones are intact, without suspicious lesions.? ? Sinuses:? Visualized sinuses and mastoids are clear.? ? IMPRESSION:? ? ? Normal CT of the brain ? ? Approved by: Troy Buenrostro M.D. on 01/15/2022 at 17:36? ECG Data Interpretation: Normal sinus rhythm rate 95 UT interval 168 QRS [address] changes no T-wave inversions MDM Narrative Medical decision making narrative: Patient fell hitting her head last week. His no nausea vomiting no focal deficits. Head CT and neck CT are negative. She now is complaining of some mild dizziness it does not feel like her normal vertigo. Blood work does show that she is mildly anemic hemoglobin 9.9, hematocrit 31.3 there is no prior blood work. No need for blood transfusion may or may not be causing her dizziness. His no evidence of infection. She reports taking significant amount of Tylenol any relief for headache. Tylenol level is negative she has absolutely no abdominal pain nausea vomiting or evidence suggest Tylenol overdose. Patient is ambulatory feeling mildly better. At this time no indication for further workup or admission. Discharge Plan Departure Patient Disposition: Home Clinical Impression: Closed head injury, Anemia Instructions: Concussion, Anemia Activity Restrictions/Additional Instructions: *You have been diagnosed with closed head injury *What to do: At this time her scans are negative. Please have your blood work rechecked with PCP. You are mildly anemic. Recommend a multivitamin. No cause of your mild dizziness at this time. *Continue to take medications as directed Tylenol 650 mg every 4-6 hours if needed for [id number] pain (no more than 4000 mg in 24 hours) Ibuprofen 600 mg every 6 hours if needed for [id number] pain *Follow up with your primary care provider in 2-3 days or call [phone] *Return to ER if you should have increasing weakness [or] any new, worsening or concerning symptoms Prescriptions: No Action gabapentin [Neurontin] 300 MG capsule 300 mg PO TID Qty: 0 Rx Instructions: for chronic pain tramadol 50 mg tablet 50 mg PO TID PRN (Reason: pain) Qty: 10 0RF acetaminophen-codeine [Tylenol-Codeine #3] 300-30 mg tablet 1 tab PO Q4-6H PRN (Reason: pain) Qty: 10 0RF bupropion HCl 100 mg tablet sustained-release 12 hr 100 mg PO BID alprazolam 0.5 mg tablet 0.5 mg PO BID Label Comments: take 1 tablet by mouth every morning AND 8 HOURS LATER THEN 1/2 AT BEDTIME alprazolam 0.5 mg tablet 0.25 mg PO BEDTIME Label Comments: take 1 tablet by mouth two times a day and half tablet at bedtime. trazodone 100 mg tablet 100 mg PO BEDTIME Label Comments: take 1 tablet by mouth at bedtime paroxetine HCl 40 mg tablet 40 mg PO DAILY Label Comments: take 1 tablet by mouth once daily fluticasone propionate 50 mcg/actuation spray,suspension 1 spray Intranasal DIRECTED promethazine-codeine 6.25-10 mg/5 mL syrup 5 ml PO Q4-6H PRN (Reason: cough) Qty: 118 0RF albuterol sulfate 90 mcg/actuation HFA aerosol inhaler 2 inhalation INHALATION Q4H PRN (Reason: cough/shortness of breath) Qty: 8.5 0RF Rx Instructions: Referrals: Art Phillip MD [Primary Care Provider] - Visit Report Forms: Patient Portal/API
[2022-01-15 22:09] LABS: Add Manual Diff / Slide Review NO; Basophils Absolute Auto 0 /uL (0-100); Basophils Percent Auto 0.6 % (0-2); Eosinophils Absolute Auto 100 /uL (0-450); Eosinophils Percent Auto 1.7 % (2-4); Hematocrit 31.3 % (36-46); Hemoglobin 9.9 g/dL (12.0-16.0); Lymphocytes Absolute Auto 2700 /uL (1100-4500); Lymphocytes Percent Auto 35.3 % (25-40); Mean Corpuscular HGB Conc 31.5 % (30-36); Mean Corpuscular Hemoglobin 25.5 PG (26-34); Mean Corpuscular Volume 80.7 fL (80-100); Monocytes Absolute Auto 700 /uL (0-900); Monocytes Percent Auto 9.6 % (3-14); Neutrophils Absolute Auto 4000 /uL (1500-7000); Neutrophils Percent Auto 52.8 % (50-75); Platelet Count 380 X10^3/uL (150-400); Red Blood Cell Count 3.87 X10^6/uL (4.0-5.2); Red Cell Distribution Width 16.5 % (11.6-14.8); White Blood Cell Count 7.5 X10^3/uL (4.5-11.0)
[2022-01-15] MEDS: ALBUTEROL/IPRATROPIUM 3 ML AMPUL INH (22:09)
[2022-01-15 22:10] VITALS: PULSE 99; RESP 20; O2SAT 99
[2022-01-15 22:20] LABS: Acetaminophen < 10 ug/mL (10-30); Alanine Aminotransferase 24 IU/L (<35); Albumin 4.5 g/dL (3.5-5.0); Albumin Globulin Ratio 1.4 (1.0-2.8); Alkaline Phosphatase 73 U/L (38-126); Aspartate Aminotransferase 32 IU/L (14-36); BUN Creatinine Ratio 32.7 (6-22); Bilirubin Total 0.2 mg/dL (0.2-1.3); Blood Urea Nitrogen 16 mg/dL (7-17); Calcium 9.1 mg/dL (8.4-10.2); Carbon Dioxide 25 mmol/L (22-32); Chloride 104 mmol/L (98-107); Creatine Kinase 62 U/L (30-135); Estimated Glomerular Filt Rate > 60 mL/min (>60); Globulin 3.2 g/dL (1.7-4.1); Glucose 132 mg/dL (80-110); HEMOLYSIS < 15 (0-50); Potassium 3.6 mmol/L (3.4-5.1); Sodium 137 mmol/L (137-145); Total Protein 7.7 g/dL (6.3-8.2)
[2022-01-15 22:32] LABS: Troponin I < 0.012 ng/mL (0.01-0.034)
[2022-01-15 23:22] VITALS: BP 137/69; PULSE 90; RESP 16; O2SAT 96
== END 2022-01-15 23:23 | disposition home or self-care (01) ==
PROVIDERS: Emergency Provider Emergency Medicine; Family Provider Family Medicine; PCP Family Medicine
DX: S09.90XA Unspecified injury of head, initial encounter (principal); D64.9 Anemia, unspecified; R42 Dizziness and giddiness; W18.30XA Fall on same level, unspecified, initial encounter
CPT/HCPCS: 36415; 70450; 72125; 80053; 80329; 82550; 84484; 85025; 93005; 94640; 99284; G0480

== ENCOUNTER → 2022-07-03 13:52 | Outpatient (CLI) | payer MEDICARE, MEDICAID, SELFPAY ==
--- NOTE | 2022-07-03 | DI.CT.S_ITS ---
PROCEDURE: CT CHEST WO CON INDICATIONS: Solitary pulmonary nodule TECHNIQUE: Noncontrast 5 mm thick sections acquired from the pulmonary apices to the posterior costophrenic angles. 1 mm lung window, 5 mm thick coronal and sagittal and 7 mm axial MIP reformats were then acquired. For radiation dose reduction, the following was used: automated exposure control, adjustment of mA and/or kV according to patient size. COMPARISON: [facility], CT, CT CHEST WO CON, 09/07/2020, 13:55. FINDINGS: Image quality: Excellent. Lungs and pleura: Mild biapical emphysematous change and interstitial fibrosis. Pulmonary nodules are as follows: 1. A previously described subsolid pulmonary nodule in the inferior aspect of the right upper lobe has slightly increased in size and density. It previously measured 5 mm on prior image 155/3. It currently measures 8 mm on image 148/3. 2. A previous 3 mm right upper lobe pulmonary nodule on previous image 145/3 is no longer identifiable. 3. Stable 2 mm pulmonary nodule, right lower lobe, previous image 262/3 and current image 244/3. No acute air space opacities. No pleural effusions or pneumothorax. Central and peripheral airways are patent and normal in caliber. Mediastinum: Heart size is normal. No pericardial effusion. Severe coronary artery calcifications. No mediastinal adenopathy by size criteria. Thoracic aorta and central pulmonary arteries are normal in size. Esophagus is normal in caliber. No hiatal hernia. Bones and chest wall: No suspicious bony lesions. No vertebral body compression fractures. No axillary or supraclavicular adenopathy by size criteria. Thyroid gland is unremarkable . Abdomen: Visualized upper abdominal solid organs and bowel loops appear normal in the absence of contrast. IMPRESSION: 1. Mild emphysematous change. 2. Mild apical pulmonary interstitial fibrosis. 3. Slight interval increase in size and density of a subsolid pulmonary nodule in the right upper lobe, now measuring 8 mm. This could potentially represent a carcinoma in situ or indolent adenocarcinoma, or can be a benign lesion. It is still very small. 4. Severe coronary artery calcifications. Comment: Recommend repeat CT chest without contrast in 6 months. Dictated by: Jhonny Arroyo M.D. on 07/03/2022 at 15:52 Approved by: Jhonny Arroyo M.D. on 07/03/2022 at 16:06
== END ==
PROVIDERS: Family Provider Family Medicine; PCP Family Medicine; Referring Provider Family Medicine; Visit Provider Family Medicine
DX: R91.8 Other nonspecific abnormal finding of lung field (principal); I25.10 Atherosclerotic heart disease of native coronary artery without angina pectoris; J84.10 Pulmonary fibrosis, unspecified
CPT/HCPCS: 71250

== ENCOUNTER 2023-05-07 08:35 | Emergency (ER) | payer OTHER, MEDICAID, SELFPAY ==
[2023-05-07] VITALS (7 sets, daily range): BP systolic 137–172; BP diastolic 72–83; PULSE 94–121; RESP 24; TEMP 36.4; O2SAT 93–99; BMI 15.0
--- NOTE | 2023-05-07 09:05 | DI.RAD.S_ITS ---
PROCEDURE: XR HIP W PEL IF DONE LT 2V INDICATIONS: hip pain TECHNIQUE: AP pelvis with lateral view(s) of the left hip(s). COMPARISON: None. FINDINGS: Bones: No fractures or dislocations. Pelvic ring appears intact. No suspicious bony lesions. Soft tissues: The visualized bowel gas pattern is normal. There are scattered atheromatous calcifications present. Phleboliths are present within the left hemipelvis. IMPRESSION: No acute bony abnormality. Dictated by: Veronique Briseno M.D. on 05/07/2023 at 9:46 Approved by: Veronique Briseno M.D. on 05/07/2023 at 9:47
--- NOTE | 2023-05-07 09:06 | ED_ITS ---
HPI - Back Pain/Injury General Chief Complaint: Back Pain/Injury Stated Complaint: hurt lower back/pain Time Seen by Provider: 05/07/23 08:53 Source: patient History of Present Illness HPI Narrative: 72-year-old female who arrives ambulatory complaining of back pain. Says that she has had it for about 5 days, primarily in the right sacral and right hip area. She has not had any falls or other injury she can identify, she said that it started after she was down in her hands and knees cleaning her floors 5 days ago. He has not had any fevers no problems with bowel or bladder control no leg weakness although it is painful to walk on her right leg. She does not have a history of chronic back pain in the past. Primary care physician is Dr. Art Phillip. Related Data Home Medications Medication Instructions Recorded Confirmed gabapentin 300 mg capsule 300 mg PO TID ##0 09/26/10 05/07/23 (Neurontin) alprazolam 0.5 mg tablet 0.25 mg PO BEDTIME 05/21/18 05/07/23 alprazolam 0.5 mg tablet 0.5 mg PO BID 05/21/18 05/07/23 bupropion HCl 100 mg tablet,12 hr 100 mg PO BID 05/21/18 05/07/23 sustained-release fluticasone propionate 50 1 spray intranasal DIRECTED 05/21/18 05/07/23 mcg/actuation nasal spray,suspension paroxetine HCl 40 mg tablet 40 mg PO DAILY 05/21/18 05/07/23 trazodone 100 mg tablet 100 mg PO BEDTIME 05/21/18 05/07/23 Previous Rx's Medication Instructions Recorded albuterol sulfate 90 mcg/actuation 2 inhalation inhalation Q4H PRN 05/21/18 aerosol inhaler cough/shortness of breath #8.5 grams Allergies Allergy/AdvReac Type Severity Reaction Status Date / Time quinine [QUININE] Allergy Unknown Verified 05/07/23 07:56 tramadol Allergy Verified 05/07/23 07:56 KIWI Allergy Severe ANAPHYLAXIS Uncoded 05/07/23 07:56 JOYCE Allergy Severe ANAPHYLAXIS Uncoded 05/07/23 07:56 MSG AdvReac Intermediate DIARRHEA Uncoded 05/07/23 07:56 METAL AdvReac Mild RASH Uncoded 05/07/23 07:56 Patient History Medical History (Updated 05/07/23 @ 10:41 by Farshad Chan MD) Chronic pain syndrome Reactive airways dysfunction syndrome Surgical History History of tonsillectomy Status post delivery Status post hysterectomy Social History Smoking Status: Former smoker Smoking Status: Former smoker alcohol intake frequency: holidays/special occasions only Substance Use Type: marijuana Exam Initial Vital Signs Initial Vital Signs: Vital Signs Pulse Rate 121 H 05/07/23 08:40 Blood Pressure 172/82 H 05/07/23 08:40 Pulse Oximetry 98 05/07/23 08:40 Thin female, appears to be in no distress, noted to be tachycardic and hypertensive at triage. HENMT Head: normocephalic and atraumatic Neck Other: Supple Resp Effort & Inspection: normal respiratory effort and able to speak in complete sentences Cardio Other: Tachycardic, regular rhythm Back/Spine/Pelvis Other: No midline tenderness or step-off of the thoracic or lumbar spine. Chest some tenderness in the right sacral area Skin Other: Warm and dry Neuro Other: Motor and sensation in lower extremities are intact. Extrem Other: Good active and passive range of motion of the right hip although she complains of pain with flexion and internal rotation of the right hip. Course Orders Ordered: ED Orders 05/07/23 09:05 XR hip w pel if done LT 2V Stat Discontinued Medications Ketorolac Tromethamine (Ketorolac 30 Mg/Ml Vial) 15 mg IM NOW ONE Stop: 05/07/23 09:46 Last Admin: 05/07/23 09:55 Dose: 15 mg Documented By: RICHARD Reevaluation(s) Reevaluation #1: Some improvement in her pain after Toradol. Discussed imaging findings and recommendations for symptomatic care and follow up Vital Signs Vital signs: Vital Signs - 8 hr 05/07/23 08:40 05/07/23 08:40 05/07/23 08:46 Temperature 97.6 F Pulse Rate 121 H 115 H Respiratory Rate 24 Blood Pressure 172/82 H 172/82 H Pulse Oximetry 98 98 Oxygen Delivery Method Room Air 05/07/23 09:00 05/07/23 09:00 05/07/23 09:35 Temperature Pulse Rate 99 H 101 H Respiratory Rate Blood Pressure 155/72 H Pulse Oximetry 99 96 Oxygen Delivery Method Room Air 05/07/23 09:35 05/07/23 10:00 05/07/23 10:02 Temperature Pulse Rate 100 H 94 H Respiratory Rate Blood Pressure 154/73 H Pulse Oximetry 97 96 Oxygen Delivery Method Room Air 05/07/23 10:02 Temperature Pulse Rate Respiratory Rate Blood Pressure 137/79 Pulse Oximetry Oxygen Delivery Method MDM - Back Pain/Injury Imaging Data Left hip: My Impression: Independently reviewed, no fracture no dislocation does not appear to have advanced arthritic changes Radiologist's Impression: No acute findings per Radiology MDM Narrative Medical decision making narrative: 72-year-old female with atraumatic left hip pain. Differential diagnosis includes arthritis, infected joint, occult trauma and soft tissue inflammation. Her lumbar spine was completely nontender I do not think this is sciatica. Imaging is negative for acute findings, exam does not suggest infection, I think she is safe for symptomatic care and primary care follow up Discharge Plan Departure Patient Disposition: Home Clinical Impression: Acute pain of left hip Activity Restrictions/Additional Instructions: No bony abnormality is seen on your x-rays, I think it is safe for you to go home and follow up soon with primary care. In the meantime, I recommend to use ibuprofen 400 mg 3 times a day. Do this regularly for a few days so the anti- inflammatory component of this medication can work. Make sure that you are taking this with food. You can also use acetaminophen, Acetaminophen (tylenol) should be dosed at 650 mg every 4 hours or 1000mg every 6 hours. It can be given as needed but is more effective if given on a scheduled basis. Total daily dose should not exceed 4,000mg. If you were prescribed norco (hydrocodone/apap) or percocet (oxycodone/apap) each tablet of these contains 325 mg of acetaminophen and should be included when calculating daily dose. Activity as tolerated. Follow up soon with your primary care provider. Return to the emergency department for fevers abdominal pain or other acute symptoms. Prescriptions: No Action gabapentin [Neurontin] 300 MG capsule 300 mg PO TID Qty: 0 Rx Instructions: for chronic pain bupropion HCl 100 mg tablet sustained-release 12 hr 100 mg PO BID alprazolam 0.5 mg tablet 0.5 mg PO BID Patient Comments: take 1 tablet by mouth every morning AND 8 HOURS LATER THEN 1/2 AT BEDTIME alprazolam 0.5 mg tablet 0.25 mg PO BEDTIME Patient Comments: take 1 tablet by mouth two times a day and half tablet at bedtime. trazodone 100 mg tablet 100 mg PO BEDTIME Patient Comments: take 1 tablet by mouth at bedtime paroxetine HCl 40 mg tablet 40 mg PO DAILY Patient Comments: take 1 tablet by mouth once daily fluticasone propionate 50 mcg/actuation spray,suspension 1 spray Intranasal DIRECTED albuterol sulfate 90 mcg/actuation HFA aerosol inhaler 2 inhalation INHALATION Q4H PRN (Reason: cough/shortness of breath) Qty: 8.5 0RF Rx Instructions: Referrals: Art Phillip MD [Primary Care Provider] - Stand Alone Forms: Patient Portal/API
[2023-05-07] MEDS: KETOROLAC 30 MG/ML VIAL 15 MG IM (09:55)
== END 2023-05-07 10:45 | disposition home or self-care (01) ==
PROVIDERS: Emergency Provider Emergency Medicine; Family Provider Family Medicine; PCP Family Medicine
DX: M25.552 Pain in left hip (principal); M54.50 Low back pain, unspecified
CPT/HCPCS: 73502; 96372; 99283; J1885

== ENCOUNTER 2023-07-09 16:01 | Emergency (ER) | payer OTHER, MEDICAID, SELFPAY ==
[2023-07-09 16:19] VITALS: BP 128/88; PULSE 117; RESP 18; TEMP 37.4; O2SAT 93; BMI 14.2
--- NOTE | 2023-07-09 16:53 | ED.EXTPRO ---
HPI - Extremity Problem <Cooper Loera PA-C - Last Filed: 07/09/23 18:25> General Chief complaint: Extremity Problem,Nontraumatic Stated complaint: Numbness LLE Time Seen by Provider: 07/09/23 16:16 Source: patient and EMS Mode of arrival: EMS History of Present Illness HPI Narrative: This is a 72-year-old female presents to the emergency due to intermittent peripheral neuropathy to her lower extremities which she states has been affecting her for months. She states that her primary care provider sent her here. She reports intermittent numbness and tingling in her feet and toes. No injuries. Related Data Home Medications Medication Instructions Recorded Confirmed gabapentin 300 mg capsule 300 mg PO TID ##0 09/26/10 05/07/23 (Neurontin) alprazolam 0.5 mg tablet 0.25 mg PO BEDTIME 05/21/18 05/07/23 alprazolam 0.5 mg tablet 0.5 mg PO BID 05/21/18 05/07/23 bupropion HCl 100 mg tablet,12 hr 100 mg PO BID 05/21/18 05/07/23 sustained-release fluticasone propionate 50 1 spray intranasal DIRECTED 05/21/18 05/07/23 mcg/actuation nasal spray,suspension paroxetine HCl 40 mg tablet 40 mg PO DAILY 05/21/18 05/07/23 trazodone 100 mg tablet 100 mg PO BEDTIME 05/21/18 05/07/23 Previous Rx's Medication Instructions Recorded albuterol sulfate 90 mcg/actuation 2 inhalation inhalation Q4H PRN 05/21/18 aerosol inhaler cough/shortness of breath #8.5 grams Allergies Allergy/AdvReac Type Severity Reaction Status Date / Time quinine [QUININE] Allergy Unknown Verified 05/07/23 07:56 tramadol Allergy Verified 05/07/23 07:56 KIWI Allergy Severe ANAPHYLAXIS Uncoded 05/07/23 07:56 JOYCE Allergy Severe ANAPHYLAXIS Uncoded 05/07/23 07:56 MSG AdvReac Intermediate DIARRHEA Uncoded 05/07/23 07:56 METAL AdvReac Mild RASH Uncoded 05/07/23 07:56 Review of Systems <Cooper Loera PA-C - Last Filed: 07/09/23 18:25> Review of Systems Narrative: GENERAL: Denies chills, fatigue, malaise, fever, sweats. HEENT: Denies sinus pain, ear pain, sore throat, difficulty swallowing, dizziness. RESPIRATORY: Denies dyspnea, cough, wheezing, hemoptysis, sputum. CARDIOVASCULAR: Denies chest pain, palpitations, orthopnea, edema, GASTROINTESTINAL: Denies nausea, vomiting, abdominal pain, diarrhea, constipation, melena. : Denies dysuria, frequency, incontinence, hematuria, urinary retention. MUSCULOSKELETAL: denies weakness, joint pain, or bony pain SKIN: Denies rash, skin lesions, or other NEUROLOGIC: Denies weakness, headache, numbness, change in speech, confusion, seizures, incoordination. PSYCHIATRIC: No concerning psychosocial issues. 12 point review of systems is negative except for those stated above Patient History <Cooper Loera PA-C - Last Filed: 07/09/23 18:25> Medical History (Updated 07/09/23 @ 17:42 by Cooper Loera PA-C) Chronic pain syndrome Reactive airways dysfunction syndrome Surgical History History of tonsillectomy Status post delivery Status post hysterectomy Social History Smoking Status: Former smoker Smoking Status: Former smoker alcohol intake frequency: holidays/special occasions only Substance Use Type: marijuana Exam <Cooper Loera PA-C - Last Filed: 07/09/23 18:25> Narrative Exam Narrative: GENERAL: Well-developed patient, in mild distress. HEAD: Atraumatic. Normocephalic. EYES: Pupils equal round and reactive. Extraocular motions intact. No scleral icterus. No injection or drainage. ENT: Nose without bleeding, purulent drainage. Throat without erythema, tonsillar hypertrophy or exudate. Airway patent. NECK: Trachea midline. Non tender EXTREMITIES: No edema or joint tenderness. NEURO: AOx3. Cranial nerves 2-12 intact SKIN: No rash or erythema of visible areas Initial Vital Signs Initial Vital Signs: Vital Signs Temperature 99.3 F 07/09/23 16:19 Pulse Rate 117 H 07/09/23 16:19 Respiratory Rate 18 07/09/23 16:19 Blood Pressure 128/88 07/09/23 16:19 Pulse Oximetry 93 07/09/23 16:19 Oxygen Delivery Method Room Air 07/09/23 16:19 <Linda Hanna DO - Last Filed: 07/10/23 16:17> Initial Vital Signs Initial Vital Signs: Vital Signs Temperature 99.3 F 07/09/23 16:19 Pulse Rate 117 H 07/09/23 16:19 Respiratory Rate 18 07/09/23 16:19 Blood Pressure 128/88 07/09/23 16:19 Pulse Oximetry 93 07/09/23 16:19 Oxygen Delivery Method Room Air 07/09/23 16:19 Course <Cooper Loera PA-C - Last Filed: 07/09/23 18:25> Vital Signs Vital signs: Vital Signs - 8 hr 07/09/23 16:19 07/09/23 17:58 Temperature 99.3 F 98.5 F Pulse Rate 117 H 111 H Respiratory Rate 18 12 Blood Pressure 128/88 133/81 Pulse Oximetry 93 98 Oxygen Delivery Method Room Air <Linda Hanna DO - Last Filed: 07/10/23 16:17> Vital Signs Vital signs: Vital Signs - 8 hr 07/09/23 16:19 07/09/23 17:58 Temperature 99.3 F 98.5 F Pulse Rate 117 H 111 H Respiratory Rate 18 12 Blood Pressure 128/88 133/81 Pulse Oximetry 93 98 Oxygen Delivery Method Room Air MDM - Extremity (Nontraumatic) <Cooper Loera PA-C - Last Filed: 07/09/23 18:25> MDM Narrative Medical decision making narrative: ED course: This is a 72-year-old female presents to the emergency department due to reports of intermittent numbness and tingling to her lower extremities primarily here feet and toes. She was not presenting with any concerning symptoms such as saddle paresthesias, urinary or bowel incontinence, or significant unilateral weakness concerning for any kind of central cord injury. The peripheral neuropathy has been affecting for a few months. Recommended she speak with the primary care provider for the causes of this peripheral neuropathy to be worked up outpatient. She had a very reassuring neuro exam very low concern for any kind of acute ischemic or hemorrhagic stroke. CC: Peripheral neuropathy Complicating co-morbidities: History of chronic back pain and chronic pain syndrome Data collected from: Previous notes Medical records reviewed: Patient was last seen here about 2 months ago due to back pain. History of chronic back pain. History of chronic pain syndrome. Patient was given Toradol and discharged. Differential considered, but not limited to: Spinal cord injury, peripheral neuropathy, diabetic neuropathy, B12 deficiency, lumbar stenosis Exam documented above, pertinent findings include: Cranial nerves 2-12 intact, no obvious focal neuro deficits Lab Test results independently reviewed as above. Pertinent findings: None obtained Imaging studies independently reviewed: None obtained Scores Used: None MIPS Elements: None Consultations: None Treatments: None Re-evaluations: None Discussion: Discussed plan with the patient was comfortable with the plan Diagnosis: Peripheral neuropathy Disposition: see below, along with detailed discharge instructions that have been reviewed with patient as well as indications for ED re-evaluation and additional outpatient follow up Discharge Plan Departure Patient Disposition: Home Clinical Impression: Peripheral neuropathy Activity Restrictions/Additional Instructions: Thank you for coming to the [facility] Emergency Department today. As we discussed the numbness and tingling that this is affecting your lower extremities can have multiple different reasons and causes. These are best worked up by your primary care provider. At this time you have not reported any concerning findings such as saddle paresthesias, urinary or bowel incontinence, unilateral weakness, or any other concerning signs or symptoms. I recommend you speak with the primary care provider for workup of the numbness and tingling your feeling in your feet and toes at an outpatient visit. Please return to the emergency department if you develop any numbness between her legs, urinary or bowel incontinence, or any other concerning signs or symptoms. I hope you feel better soon. Please follow up with your primary care provider within a week if your symptoms continue. If you do not have a primary care provider please contact the [facility] Resource line at [phone]. They will ask some questions about your medical history and help you get set up with a provider in the community. Prescriptions: No Action gabapentin [Neurontin] 300 MG capsule 300 mg PO TID Qty: 0 Rx Instructions: for chronic pain bupropion HCl 100 mg tablet sustained-release 12 hr 100 mg PO BID alprazolam 0.5 mg tablet 0.5 mg PO BID Patient Comments: take 1 tablet by mouth every morning AND 8 HOURS LATER THEN 1/2 AT BEDTIME alprazolam 0.5 mg tablet 0.25 mg PO BEDTIME Patient Comments: take 1 tablet by mouth two times a day and half tablet at bedtime. trazodone 100 mg tablet 100 mg PO BEDTIME Patient Comments: take 1 tablet by mouth at bedtime paroxetine HCl 40 mg tablet 40 mg PO DAILY Patient Comments: take 1 tablet by mouth once daily fluticasone propionate 50 mcg/actuation spray,suspension 1 spray Intranasal DIRECTED albuterol sulfate 90 mcg/actuation HFA aerosol inhaler 2 inhalation INHALATION Q4H PRN (Reason: cough/shortness of breath) Qty: 8.5 0RF Rx Instructions: Referrals: Art Phillip MD [Primary Care Provider] - Stand Alone Forms: Patient Portal/API ED Sign-out <Linda Hanna DO - Last Filed: 07/10/23 16:17> Cosign ED Attending Cosmashaature Attestation: I was immediately available in the department for consultation.
[2023-07-09 17:58] VITALS: BP 133/81; PULSE 111; RESP 12; TEMP 36.9; O2SAT 98
== END 2023-07-09 18:13 | disposition home or self-care (01) ==
PROVIDERS: Emergency Provider Physician Assistant Medical; Family Provider Family Medicine; PCP Family Medicine
DX: G62.9 Polyneuropathy, unspecified (principal)
CPT/HCPCS: 99281; 99282

== ENCOUNTER → 2023-07-17 12:26 | Outpatient (CLI) | payer OTHER, MEDICAID, SELFPAY ==
--- NOTE | 2023-07-17 12:27 | DI.CT.S_ITS ---
PROCEDURE: CT CHEST WO CON INDICATIONS: Solitary pulmonary nodule TECHNIQUE: Noncontrast 5 mm thick sections acquired from the pulmonary apices to the posterior costophrenic angles. 1 mm lung window, 5 mm thick coronal and sagittal and 7 mm axial MIP reformats were then acquired. For radiation dose reduction, the following was used: automated exposure control, adjustment of mA and/or kV according to patient size. COMPARISON: [facility], CT, CT CHEST WO CON, 07/03/2022, 14:16. FINDINGS: Image quality: Diagnostic. Lower Neck: No enlarged lymph nodes. Thyroid: No thyroid nodules which require sonographic follow up, per consensus guidelines. Axillae: No enlarged lymph nodes. Chest Wall: Unremarkable. Bones: Unremarkable. Lungs and Pleura: Moderate centrilobular emphysema. Smooth interstitial thickening. Small right pleural effusion. Mild paraseptal emphysema. No growing pulmonary nodule. Stable biapical scarring. Interval decrease in size of the part solid nodule in the anterior right upper lobe, measuring 6 x 5 mm, previously 11 x 7 mm (series 3, image 158). Heart: Heart size is enlarged. No pericardial effusion. Low attenuation of the blood pool relative to the interventricular septum. Two vessel coronary calcifications. Thoracic Vessels: The aorta and pulmonary arteries demonstrate normal size. Mediastinum and Summer: No enlarged lymph nodes. Esophagus: No wall thickening. No hiatal hernia. Upper Abdomen: Visualized upper abdomen solid organs and bowel loops appear normal. IMPRESSION: Interval decrease in size of the subsolid nodule in the anterior right upper lobe, favoring a resolving inflammatory process. Consider annual lung cancer screening if eligible. New small right pleural effusion. Uncertain etiology. Consider diagnostic paracentesis. Low attenuation of the blood pool relative to the interventricular septum, suggestive of anemia. Dictated by: Leif Hwang M.D. on 07/17/2023 at 13:33 Approved by: Leif Hwang M.D. on 07/17/2023 at 13:48
[2023-07-17 14:13] LABS: Add Manual Diff / Slide Review NO; Basophils Absolute Auto 100 /uL (0-100); Basophils Percent Auto 0.5 % (0-2); Eosinophils Absolute Auto 200 /uL (0-450); Eosinophils Percent Auto 1.4 % (2-4); Lymphocytes Absolute Auto 1200 /uL (1100-4500); Lymphocytes Percent Auto 9.5 % (25-40); Mean Corpuscular HGB Conc 29.9 % (30-36); Mean Corpuscular Hemoglobin 21.6 PG (26-34); Mean Corpuscular Volume 72.3 fL (80-100); Monocytes Absolute Auto 900 /uL (0-900); Monocytes Percent Auto 7.2 % (3-14); Neutrophils Absolute Auto 10300 /uL (1500-7000); Neutrophils Percent Auto 81.4 % (50-75); Platelet Count 482 X10^3/uL (150-400); Red Blood Cell Count 2.58 X10^6/uL (4.0-5.2); White Blood Cell Count 12.7 X10^3/uL (4.5-11.0)
[2023-07-17 14:18] LABS: Hematocrit 18.6 % (36-46); Hemoglobin 5.6 g/dL (12.0-16.0)
[2023-07-17 14:47] LABS: Alanine Aminotransferase 17 IU/L (<35); Albumin Globulin Ratio 1.6 (1.0-2.8); Alkaline Phosphatase 61 U/L (38-126); Aspartate Aminotransferase 28 IU/L (14-36); Bilirubin Total 0.3 mg/dL (0.2-1.3); Blood Urea Nitrogen 23 mg/dL (7-17); Calcium 8.6 mg/dL (8.4-10.2); Carbon Dioxide 25 mmol/L (22-32); Chloride 108 mmol/L (98-107); Estimated Glomerular Filt Rate > 60 mL/min (>60); Globulin 2.5 g/dL (1.7-4.1); Glucose 92 mg/dL (80-110); HEMOLYSIS < 15 (0-50); Potassium 3.8 mmol/L (3.4-5.1); Sodium 140 mmol/L (137-145); Total Protein 6.5 g/dL (6.3-8.2)
[2023-07-17 15:18] LABS: Thyroid Stimulating Hormone 2.04 uIU/mL (0.47-4.68)
== END ==
PROVIDERS: Family Provider Family Medicine; PCP Family Medicine; Referring Provider Family Medicine; Visit Provider Family Medicine
DX: R91.1 Solitary pulmonary nodule (principal); R63.4 Abnormal weight loss; D50.8 Other iron deficiency anemias; J43.9 Emphysema, unspecified; J43.2 Centrilobular emphysema; J90 Pleural effusion, not elsewhere classified; I51.7 Cardiomegaly; I25.10 Atherosclerotic heart disease of native coronary artery without angina pectoris
CPT/HCPCS: 36415; 71250; 80053; 84443; 85025

== ENCOUNTER 2023-07-17 16:26 | Emergency (ER) | payer OTHER, MEDICAID, SELFPAY ==
[2023-07-17] VITALS (27 sets, daily range): BP systolic 121–173; BP diastolic 59–108; PULSE 92–117; RESP 11–55; TEMP 36.4–37.6; O2SAT 92–99; BMI 13.3
--- NOTE | 2023-07-17 16:44 | DI.RAD.S_ITS ---
PROCEDURE: XR CHEST 1V INDICATIONS: Shortness of breath TECHNIQUE: One view of the chest was acquired. COMPARISON: [facility], CT, CT CHEST WO CON, 07/17/2023, 12:37. [facility], CR, XR CHEST 2V, 05/21/2018, 13:35. [facility], CR, CHEST FOR PICC PLACEMENT, 07/22/2012, 16:21. FINDINGS: Surgical changes and devices: ACDF. Right shoulder anchors. Lungs and pleura: No consolidation. Loyda B lines. Prominent pulmonary markings. Small right pleural effusion. Emphysematous change. No pneumothorax. Mediastinum: Mediastinal contours appear normal. Heart size is normal. Bones and chest wall: No suspicious bony lesions. Overlying soft tissues appear unremarkable. IMPRESSION: Mild fluid overload/CHF. Small right pleural effusion. Dictated by: Travon Steele M.D. on 07/17/2023 at 18:43 Approved by: Travon Steele M.D. on 07/17/2023 at 18:45
[2023-07-17 17:04] LABS: Add Manual Diff / Slide Review NO; Basophils Absolute Auto 200 /uL (0-100); Basophils Percent Auto 1.2 % (0-2); Eosinophils Absolute Auto 200 /uL (0-450); Eosinophils Percent Auto 1.2 % (2-4); Lymphocytes Absolute Auto 1700 /uL (1100-4500); Lymphocytes Percent Auto 12.8 % (25-40); Mean Corpuscular HGB Conc 29.9 % (30-36); Mean Corpuscular Hemoglobin 21.5 PG (26-34); Mean Corpuscular Volume 71.9 fL (80-100); Monocytes Absolute Auto 1000 /uL (0-900); Monocytes Percent Auto 7.5 % (3-14); Neutrophils Absolute Auto 10500 /uL (1500-7000); Neutrophils Percent Auto 77.3 % (50-75); Platelet Count 489 X10^3/uL (150-400); Red Blood Cell Count 2.53 X10^6/uL (4.0-5.2); White Blood Cell Count 13.6 X10^3/uL (4.5-11.0)
[2023-07-17 17:05] LABS: INR 1.1 (0.9-1.3); Prothrombin Time 12.4 SECONDS (9.4-12.5)
[2023-07-17 17:10] LABS: Alanine Aminotransferase 18 IU/L (<35); Albumin Globulin Ratio 1.7 (1.0-2.8); Alkaline Phosphatase 62 U/L (38-126); Aspartate Aminotransferase 28 IU/L (14-36); BUN Creatinine Ratio 57.1 (6-22); Bilirubin Total 0.4 mg/dL (0.2-1.3); Blood Urea Nitrogen 24 mg/dL (7-17); Calcium 8.5 mg/dL (8.4-10.2); Carbon Dioxide 24 mmol/L (22-32); Chloride 109 mmol/L (98-107); Estimated Glomerular Filt Rate > 60 mL/min (>60); Globulin 2.3 g/dL (1.7-4.1); Glucose 116 mg/dL (80-110); HEMOLYSIS < 15 (0-50); Hemoglobin 5.4 g/dL (12.0-16.0); Lactate (Lactic Acid) 1.9 mmol/L (0.7-2.1); Potassium 3.7 mmol/L (3.4-5.1); Sodium 140 mmol/L (137-145); Total Protein 6.3 g/dL (6.3-8.2)
[2023-07-17 17:11] LABS: Hematocrit 18.2 % (36-46)
[2023-07-17 17:21] LABS: NT-proBNP (BNP-Adult 18+) 1080 pg/mL (<125); Troponin I < 0.012 ng/mL (0.01-0.034)
--- NOTE | 2023-07-17 18:00 | ED_ITS ---
HPI - Recheck/Abnormal Lab/Rx General Chief Complaint: Recheck/Abnormal Lab/Rx Stated Complaint: dr ref/blood test everything low Time Seen by Provider: 07/17/23 17:23 Source: patient and family Mode of arrival: Wheelchair History of Present Illness HPI narrative: [id number] sent here for abnormal blood test results from blood draw done this morning as an outpatient, low hemoglobin level, likely need for transfusion. She has had anemia in the past, recalls taking oral iron supplements, no prior transfusions. She has not had previous upper or lower endoscopy evaluations. She does not take blood thinner medications. She denies black or red stools, no vaginal bleeding status post hysterectomy, no nosebleeds. No history of renal failure. She does endorse recent fatigue symptoms over the last couple of weeks. She denies shortness of breath, chest pain, dizziness, focal weakness. Related Data Home Medications Medication Instructions Recorded Confirmed gabapentin 300 mg capsule 300 mg PO TID ##0 09/26/10 05/07/23 (Neurontin) alprazolam 0.5 mg tablet 0.25 mg PO BEDTIME 05/21/18 05/07/23 alprazolam 0.5 mg tablet 0.5 mg PO BID 05/21/18 05/07/23 bupropion HCl 100 mg tablet,12 hr 100 mg PO BID 05/21/18 05/07/23 sustained-release fluticasone propionate 50 1 spray intranasal DIRECTED 05/21/18 05/07/23 mcg/actuation nasal spray,suspension paroxetine HCl 40 mg tablet 40 mg PO DAILY 05/21/18 05/07/23 trazodone 100 mg tablet 100 mg PO BEDTIME 05/21/18 05/07/23 Previous Rx's Medication Instructions Recorded albuterol sulfate 90 mcg/actuation 2 inhalation inhalation Q4H PRN 05/21/18 aerosol inhaler cough/shortness of breath #8.5 grams Allergies Allergy/AdvReac Type Severity Reaction Status Date / Time quinine [QUININE] Allergy Unknown Verified 05/07/23 07:56 tramadol Allergy Verified 05/07/23 07:56 KIWI Allergy Severe ANAPHYLAXIS Uncoded 05/07/23 07:56 JOYCE Allergy Severe ANAPHYLAXIS Uncoded 05/07/23 07:56 MSG AdvReac Intermediate DIARRHEA Uncoded 05/07/23 07:56 METAL AdvReac Mild RASH Uncoded 05/07/23 07:56 Review of Systems Constitutional Constitutional: Denies chills and Denies fever(s) Eyes Eyes: Denies change in vision ENT Ears, Nose, Mouth, and Throat: Denies dizziness Cardiovascular Cardiovascular: Denies chest pain, Denies lightheadedness, Denies palpitations, Denies dyspnea, Denies dyspnea on exertion and Denies orthopnea Respiratory Respiratory: Denies dyspnea and Denies dyspnea on exertion Gastrointestinal Gastrointestinal: Denies change in bowel habits, Denies diarrhea and Denies nausea Neurologic Neurologic: Denies confusion and Denies dizziness Comments: Generalized weakness as per HPI, no focal weakness Psychiatric Psychiatric: Denies confusion Endocrine Endocrine: Denies palpitations Hematologic/Lymphatic Hematologic/Lymphatic: Denies easy bruising Allergic/Immunologic Allergic/Immunologic: Denies urticaria Patient History Medical History (Updated 07/17/23 @ 23:12 by Franco Carter MD) Chronic pain syndrome Reactive airways dysfunction syndrome Surgical History History of tonsillectomy Status post delivery Status post hysterectomy Social History Smoking Status: Former smoker Smoking Status: Former smoker alcohol intake frequency: holidays/special occasions only Substance Use Type: does not use Exam Narrative Exam Narrative: female, appears quite pale Initial Vital Signs Initial Vital Signs: Vital Signs Temperature 99.6 F 07/17/23 16:39 Pulse Rate 117 H 07/17/23 16:39 Respiratory Rate 20 07/17/23 16:39 Blood Pressure 121/59 L 07/17/23 16:39 Pulse Oximetry 99 07/17/23 16:39 Oxygen Delivery Method Room Air 07/17/23 16:39 Const General: cooperative HENMT Head: atraumatic Face and sinus: face symmetric HENMT Other: Posterior or pharyngeal pallor noted on exam consistent with anemia Eyes Sclera: sclerae normal Neck Neck: normal visual inspection and trachea midline Chest Chest: normal inspection of the chest Resp Effort & Inspection: normal respiratory effort, able to speak in complete sentences, no respiratory distress and no use of accessory muscles Auscultation: clear to auscultation bilaterally, no rales, no rhonchi and no wheezes Cardio Rate: regular rate Rhythm: regular rhythm GI Inspection: non-distended Palpation: soft and no hepatosplenomegaly Skin General: No jaundice Psych Appearance: well kempt Attitude: cooperative Course Course Course Narrative: Patient sent in for abnormal blood draw lab result, anemia, on review of systems not seem to have any obvious source of ongoing active bleeding, discussed admission for possible colonoscopy or upper endoscopy and other studies, she seems unwilling to do this. Hemodynamically stable. Outpatient hemoglobin less than 7, repeat hemoglobin less than 7 here as well. Transfusion has been ordered. She understands need for transfusion, seems willing to be transfused, 2 units have been ordered, unclear if she will stay for 2nd unit but encouraged to do so for increased reserves. We will query patient further after her transfusions to see if she might be amenable to staying for further workup as an inpatient Orders Ordered: ED Orders 07/17/23 16:44 XR chest 1V Stat EKG-12 Lead Stat Measure peak expiratory flow ONCE RT Consult Eval and Treat NOW 07/17/23 16:49 Complete Blood Count AUTO DIFF Stat Comprehensive Metabolic Panel Stat Lactate (Lactic Acid) Stat NT-proBNP (BNP-Adult 18+) Stat Prothrombin Time INR Stat Troponin I Stat 07/17/23 17:45 Type and Screen Stat transfuse [Packed Cells] Stat Reevaluation(s) Reevaluation #1: Patient had completed 1st transfusion unit, is willing to have 2nd transfusion unit Reevaluation #2: Patient tolerated 2nd transfusion unit well, was not given Lasix between units but did not develop any dyspnea. Some possible fluid overload and right pleural effusion noted on chest x-ray, though she seemed to tolerate the procedure well. She still does not want to be admitted, does not like the idea of having upper and lower endoscopy although this is likely prudent part of her workup. She would like to talk to her provider about this as an outpatient for now. We will contact cross cover physician as she was sent in by her PCP for this further workup Consultations Consultation #1: Case discussed with Dr. Dickens, on-call for Dr. Phillip, aware patient had anemia and was coming in for transfusion, made aware that patient did tolerate transfusion, had right-sided pleural effusion, BNP 1000, was advised to have further evaluation that might include upper and lower endoscopy evaluation for her severe anemia symptoms. No symptoms of GI bleeding specifically on review of systems. She however does not want any further workup now, wants to go home, further workup as an outpatient. Dr. Dickens was made aware, we will contact Dr. Phillip Time: 23:19 Vital Signs Vital signs: Vital Signs - 8 hr 07/17/23 16:39 07/17/23 17:50 07/17/23 17:51 Temperature 99.6 F Pulse Rate 117 H Respiratory Rate 20 Blood Pressure 121/59 L 146/68 H Pulse Oximetry 99 92 Oxygen Delivery Method Room Air 07/17/23 17:51 07/17/23 18:00 07/17/23 18:00 Temperature Pulse Rate 100 H 94 H Respiratory Rate 15 Blood Pressure 129/65 Pulse Oximetry 99 99 Oxygen Delivery Method 07/17/23 18:30 07/17/23 18:30 07/17/23 18:49 Temperature 99 F Pulse Rate 103 H 97 H Respiratory Rate 24 20 Blood Pressure 173/77 H 136/72 Pulse Oximetry 98 Oxygen Delivery Method 07/17/23 18:49 07/17/23 18:49 07/17/23 19:00 Temperature Pulse Rate 97 H 102 H Respiratory Rate 26 H 31 H Blood Pressure 136/72 Pulse Oximetry 99 98 Oxygen Delivery Method 07/17/23 19:00 07/17/23 19:00 07/17/23 19:15 Temperature 99.3 F Pulse Rate 92 H Respiratory Rate 16 Blood Pressure 136/72 136/72 138/78 Pulse Oximetry Oxygen Delivery Method 07/17/23 19:15 07/17/23 19:30 07/17/23 19:30 Temperature Pulse Rate 101 H 104 H Respiratory Rate 28 H 18 Blood Pressure 173/77 H Pulse Oximetry 98 98 Oxygen Delivery Method 07/17/23 19:45 07/17/23 19:45 07/17/23 20:00 Temperature Pulse Rate 96 H Respiratory Rate 21 Blood Pressure 151/72 H 153/74 H Pulse Oximetry 96 Oxygen Delivery Method 07/17/23 20:00 07/17/23 20:15 07/17/23 20:15 Temperature Pulse Rate 93 H 97 H Respiratory Rate 20 30 H Blood Pressure 149/79 H Pulse Oximetry 97 98 Oxygen Delivery Method 07/17/23 20:30 07/17/23 20:30 07/17/23 20:40 Temperature Pulse Rate 99 H 103 H Respiratory Rate 33 H 55 H Blood Pressure 167/98 H Pulse Oximetry 97 97 Oxygen Delivery Method 07/17/23 20:40 07/17/23 20:41 07/17/23 20:41 Temperature Pulse Rate 101 H Respiratory Rate 27 H Blood Pressure 162/108 H 160/83 H Pulse Oximetry 97 Oxygen Delivery Method 07/17/23 20:43 07/17/23 20:43 07/17/23 20:45 Temperature 97.9 F 97.9 F 97.9 F Pulse Rate 100 H 100 H 100 H Respiratory Rate 16 16 16 Blood Pressure 160/83 H 160/83 H 160/83 H Pulse Oximetry Oxygen Delivery Method 07/17/23 20:45 07/17/23 20:45 07/17/23 21:00 Temperature Pulse Rate 97 H Respiratory Rate 37 H Blood Pressure 154/84 H 149/80 H Pulse Oximetry 97 Oxygen Delivery Method 07/17/23 21:00 07/17/23 21:05 07/17/23 21:15 Temperature 97.6 F Pulse Rate 97 H 96 H Respiratory Rate 20 16 Blood Pressure 144/73 H 144/73 H Pulse Oximetry 96 Oxygen Delivery Method 07/17/23 21:15 07/17/23 21:30 07/17/23 21:30 Temperature Pulse Rate 100 H 93 H Respiratory Rate 37 H 26 H Blood Pressure 138/69 Pulse Oximetry 96 97 Oxygen Delivery Method 07/17/23 21:45 07/17/23 21:45 07/17/23 22:00 Temperature Pulse Rate 97 H Respiratory Rate 29 H Blood Pressure 145/77 H 151/75 H Pulse Oximetry 97 Oxygen Delivery Method 07/17/23 22:00 07/17/23 22:15 07/17/23 22:15 Temperature Pulse Rate 95 H 99 H Respiratory Rate 11 L 44 H Blood Pressure 154/82 H Pulse Oximetry 97 96 Oxygen Delivery Method 07/17/23 22:30 07/17/23 22:30 07/17/23 22:35 Temperature Pulse Rate 97 H Respiratory Rate 23 Blood Pressure 165/91 H 162/80 H Pulse Oximetry 98 Oxygen Delivery Method 07/17/23 22:35 07/17/23 22:36 Temperature 98.8 F Pulse Rate 96 H 95 H Respiratory Rate 32 H 18 Blood Pressure 162/80 H Pulse Oximetry 97 Oxygen Delivery Method MDM - Recheck/Abnormal Lab/Rx Differential Diagnosis Discussed with:: Anemia abnormal lab value reportedly found to have anemia low enough to require transfusion, consider blood loss type, vitamin deficiency, hemolytic, other Lab Data 07/17/23 16:49 07/17/23 16:49 Labs: Lab Results 07/17/23 07/17/23 Range/Units 16:49 17:45 WBC 13.6 H (4.5-11.0) X10^3/uL RBC 2.53 L (4.0-5.2) X10^6/uL Hgb 5.4 L* (12.0-16.0) g/dL Hct 18.2 L* (36-46) % MCV 71.9 L (80-100) fL MCH 21.5 L (26-34) PG MCHC 29.9 L (30-36) % RDW 18.0 H (11.6-14.8) % Plt Count 489 H (150-400) X10^3/uL Neut % (Auto) 77.3 H (50-75) % Lymph % (Auto) 12.8 L (25-40) % [place] % (Auto) 7.5 (3-14) % Eos % (Auto) 1.2 L (2-4) % Baso % (Auto) 1.2 (0-2) % Neut # (Auto) 65251 H (9006-1678) /uL Lymph # (Auto) 1700 (7252-6112) /uL [place] # (Auto) 1000 H (0-900) /uL Eos # (Auto) 200 (0-450) /uL Baso # (Auto) 200 H (0-100) /uL PT 12.4 (9.4-12.5) SECONDS INR 1.1 (0.9-1.3) Sodium 140 (137-145) mmol/L Potassium 3.7 (3.4-5.1) mmol/L Chloride 109 H (98-107) mmol/L Carbon Dioxide 24 (22-32) mmol/L BUN 24 H (7-17) mg/dL Creatinine 0.42 L (0.52-1.04) mg/dL Estimated GFR > 60 (>60) mL/min BUN/Creatinine Ratio 57.1 H (6-22) Glucose 116 H (80-110) mg/dL Lactate 1.9 (0.7-2.1) mmol/L Calcium 8.5 (8.4-10.2) mg/dL Total Bilirubin 0.4 (0.2-1.3) mg/dL AST 28 (14-36) IU/L ALT 18 (<35) IU/L Alkaline Phosphatase 62 (38-126) U/L Troponin I < 0.012 (0.01-0.034) ng/mL NT-Pro-B Natriuret Pep 1080 H (<125) pg/mL Total Protein 6.3 (6.3-8.2) g/dL Albumin 4.0 (3.5-5.0) g/dL Globulin 2.3 (1.7-4.1) g/dL Albumin/Globulin Ratio 1.7 (1.0-2.8) Blood Type A Positive Antibody Screen Negative Crossmatch See Detail ECG Data Attestation: I personally reviewed and interpreted this ECG as follows: Prior ECG tracings: not available for review Interpretation: Normal sinus rhythm with rate of 96, no obvious ST segment elevation or depression changes, normal intervals. None available for comparison MDM Narrative Medical decision making narrative: Elderly female with generalized weakness, routine outpatient labs sent this morning, found to have low hemoglobin 5.4, with adequate platelets and white blood cells, microcytic indices, no prior history of GI bleeding, status post hysterectomy no vaginal bleeding, no nose bleeding, hemodynamically stable. Agreeable to transfusion, 2 units of packed red cells ordered and to be infused. She does not appear to be dyspneic, no ischemia on EKG. She does not want to be admitted at this point for workup. Anticipate further workup as an outpatient for now. Assess for tolerance to transfusion, to be initiated. No lower extremity edema, renal function normal, no history of CHF known. Critical Care Time Critical Care Time Critical Care Time: Yes Total Critical Care Time: 35 Attestation: The high probability of a clinically significant, sudden or life threatening deterioration of the [cardiopulmonary, gastrointestinal, hematology] system(s) required my full and direct attention, intervention and personal management. The aggregate critical care time was [35] minutes. This time is in addition to time spent performing reported procedures but includes the following: [x] Data Review and interpretation [x] Patient assessment and monitoring of vital signs [x] Documentation [x] Medication orders and management Discharge Plan Departure Patient Disposition: Home Clinical Impression: Pleural effusion Anemia Qualifiers: Anemia type: unspecified type Qualified Code(s): D64.9 - Anemia, unspecified Activity Restrictions/Additional Instructions: Anemia noted on lab testing, hemoglobin less than 7, no symptoms of bleeding, consider further workup as an inpatient, upper and lower endoscopy for example, he did not want to be admitted, and he wanted to have further workup as an outpatient for now. Small right pleural effusion noted on chest x-ray, elevated BNP, possible fluid overload, although you tolerated the blood transfusion really well. You did not want to have any further workup for now. Anyway to go home. Follow up with your regular provider Dr. Phillip. Return to this/nearest emergency department for any change worsening symptoms or any concerns prior Prescriptions: No Action gabapentin [Neurontin] 300 MG capsule 300 mg PO TID Qty: 0 Rx Instructions: for chronic pain bupropion HCl 100 mg tablet sustained-release 12 hr 100 mg PO BID alprazolam 0.5 mg tablet 0.5 mg PO BID Patient Comments: take 1 tablet by mouth every morning AND 8 HOURS LATER THEN 1/2 AT BEDTIME alprazolam 0.5 mg tablet 0.25 mg PO BEDTIME Patient Comments: take 1 tablet by mouth two times a day and half tablet at bedtime. trazodone 100 mg tablet 100 mg PO BEDTIME Patient Comments: take 1 tablet by mouth at bedtime paroxetine HCl 40 mg tablet 40 mg PO DAILY Patient Comments: take 1 tablet by mouth once daily fluticasone propionate 50 mcg/actuation spray,suspension 1 spray Intranasal DIRECTED albuterol sulfate 90 mcg/actuation HFA aerosol inhaler 2 inhalation INHALATION Q4H PRN (Reason: cough/shortness of breath) Qty: 8.5 0RF Rx Instructions: Referrals: Art Phillip MD [Primary Care Provider] - Stand Alone Forms: Patient Portal/API
--- NOTE | 2023-07-17 18:17 | PC.NURSE ---
Pt saw pcp today and had labs drawn. called pt and told her to come to the ED because her hgb is low. Pt states that she is feeling a little anxious. Denies dizziness & cp.
--- NOTE | 2023-07-17 19:00 | PC.NURSE ---
aao x 3 1st unit PRBC infusing no s/s reaction noted, resp even and unlabored
--- NOTE | 2023-07-17 19:03 | PC.NURSE ---
report given to ronak HALL RN
== END 2023-07-17 23:19 | disposition home or self-care (01) ==
PROVIDERS: Emergency Medicine; Emergency Provider Emergency Medicine; Family Provider Family Medicine; PCP Family Medicine
DX: J90 Pleural effusion, not elsewhere classified (principal); D64.9 Anemia, unspecified; R06.02 Shortness of breath
CPT/HCPCS: 36415; 36430; 71045; 71250; 80053; 83605; 83880; 84443; 84484; 85025; 85610; 86850; 86900; 86901; 93005; 93010; 99284; P9016

== ENCOUNTER → 2023-08-05 11:50 | Outpatient (CLI) | payer OTHER, MEDICAID, SELFPAY ==
--- NOTE | 2023-08-05 11:53 | DI.CT.S_ITS ---
PROCEDURE: CT ABDOMEN PELVIS W CON INDICATIONS: WEIGHT LOSS TECHNIQUE: After the administration of intravenous contrast, axial sections acquired from the lung bases to the pubic symphysis. Coronal and sagittal reformats were performed. For radiation dose reduction, the following was used: automated exposure control, adjustment of mA and/or kV according to patient size. COMPARISON: [facility], CT, ABDOMEN/PELVIS WITH CONTRAST, 09/01/2013, 8:47. FINDINGS: Image quality: Diagnostic. Lower Chest: Confluent centrilobular emphysema. Pleural parenchymal bands within the lower lobes. Mild diffuse thickening of the lower esophagus. ABDOMEN: Liver: No solid mass. Gallbladder: No radiopaque gallstones or wall thickening. Biliary ducts: No biliary dilation. Pancreas: No ductal dilation. Spleen: Size is within normal limits. Adrenal Glands: No adrenal nodules. Kidneys and Ureters: No hydronephrosis. No solid mass. No complex renal cystic lesion which requires follow up. Stomach and Bowel: Normal colonic caliber, without significant wall thickening. Moderate colonic stool load. Peritoneum: No abnormal intraperitoneal fluid. No free air. Ventral Wall: No significant ventral hernia. Abdominal Nodes: No retroperitoneal or mesenteric adenopathy by size criteria. Vessels: Aorta and inferior vena cava are normal in size. Moderate atherosclerotic disease, with up to 50% narrowing of the distal aorta and common iliac arteries. PELVIS: Pelvic Organs: Hysterectomy. Bladder: No bladder wall thickening, accounting for underdistention. Pelvic Nodes: No enlarged lymph nodes. Miscellaneous: No inguinal hernias are seen. Bones: No aggressive osseous abnormality. Convex left scoliosis. Degenerative disc disease of the lumbar spine. IMPRESSION: Mild diffuse thickening of the lower esophagus, which can be seen in the setting of esophagitis or malignancy. Correlate with symptoms and consider endoscopic evaluation in the setting of weight loss. Consider lung cancer screening if eligible. Consider screening colonoscopy if not performed recently, in the setting of weight loss. Dictated by: Leif Hwang M.D. on 08/05/2023 at 15:49 Approved by: Leif Hwang M.D. on 08/05/2023 at 15:52
== END ==
PROVIDERS: Family Provider Family Medicine; PCP Family Medicine; Referring Provider Family Medicine; Visit Provider Family Medicine
DX: R63.4 Abnormal weight loss (principal); I70.0 Atherosclerosis of aorta; M41.9 Scoliosis, unspecified; M51.36 Other intervertebral disc degeneration, lumbar region; J43.2 Centrilobular emphysema; Z90.710 Acquired absence of both cervix and uterus
CPT/HCPCS: 74177; Q9967

== ENCOUNTER 2023-09-11 13:55 | Day surgery (SDC) | payer OTHER, MEDICAID, SELFPAY ==
--- NOTE | 2023-09-11 | PATH_ITS ---
[facility] Accession Number: [id number] No. of containers..02 Tissue . 01 Material submitted: . PART A: duodenum - DUODENAL PART B: gastrointestinal site - GASTRIC . 01 Diagnosis: A. DUODENUM, BIOPSY: Duodenal mucosa with no diagnostic abnormality. Negative for active inflammation, features of sprue, dysplasia, or malignancy. . B. STOMACH, BIOPSY: Gastric body mucosa with no diagnostic abnormality. No evidence of Helicobacter organisms on H/E stain. Negative for intestinal metaplasia. Negative for dysplasia or malignancy. [facility] 09/15/2023 1443 Local . 01 Electronically signed: . James Allan MD, PhD, Pathologist NPI- [id number] . 01 Gross description: . A. Received in formalin with two patient identifiers and duodenum biopsy, is a single osborne soft tissue fragment 0.4 cm in greatest dimension. Submitted in cassette A1. B. Received in formalin with two patient identifiers and gastric biopsy, is a single osborne soft tissue fragment 0.3 cm in greatest dimension. Submitted in cassette B1. ([id number]) /[facility] 09/14/2023 1036 Local . 01 Pathologist provided ICD-10: D64.9 . 01 CPT . 211385, 089446 Specimen Comment: A courtesy copy of this report has been sent to [phone] Performed at: [address] [id number] MD Kristopher Holguin MD Phone: [phone]
[2023-09-11 14:22] VITALS: BP 144/91; PULSE 114; RESP 18; TEMP 37.4; O2SAT 97
[2023-09-11] MEDS: LACTATED RINGERS 1,000 ML 42 ML IV (14:34)
--- NOTE | 2023-09-11 15:03 | P.HP_ITS ---
History of Present Illness History of Present Illness Date Patient Seen: 09/11/23 Time Patient Seen: 15:03 Chief complaint: EGD/Colonoscopy Narrative: 72-year-old frail woman here for diagnostic upper and lower endoscopy. She has a diagnosis of anemia most recent hematocrit 18. Perhaps she has had a colonoscopy in the distant past. No family history of intestinal malignancy. No abdominal concerns today. [facility] Medical History (Updated 08/01/23 @ 00:00 by ) Chronic pain syndrome Reactive airways dysfunction syndrome Surgical History History of tonsillectomy Status post delivery Status post hysterectomy Social History Smoking Status: Former smoker alcohol intake: never Meds Home Medications and Allergies Home Medications Medication Instructions Recorded Confirmed Type gabapentin 300 mg capsule 300 mg PO TID ##0 09/26/10 09/11/23 History (Neurontin) albuterol sulfate 90 mcg/actuation 2 inhalation inhalation Q4H PRN 05/21/18 09/11/23 Rx aerosol inhaler cough/shortness of breath #8.5 grams alprazolam 0.5 mg tablet 0.25 mg PO BEDTIME 05/21/18 05/07/23 History alprazolam 0.5 mg tablet 0.5 mg PO BID 05/21/18 05/07/23 History bupropion HCl 100 mg tablet,12 hr 100 mg PO BID 05/21/18 09/11/23 History sustained-release fluticasone propionate 50 1 spray intranasal DIRECTED 05/21/18 09/11/23 History mcg/actuation nasal spray,suspension paroxetine HCl 40 mg tablet 40 mg PO DAILY 05/21/18 09/11/23 History trazodone 100 mg tablet 100 mg PO BEDTIME 05/21/18 09/11/23 History Allergies Allergy/AdvReac Type Severity Reaction Status Date / Time kiwi Allergy Severe Anaphylaxis Verified 09/11/23 10:31 phyllis Allergy Severe Anaphylaxis Verified 09/11/23 10:31 quinine [QUININE] Allergy Unknown Verified 05/07/23 07:56 tramadol Allergy Verified 05/07/23 07:56 monosodium glutamate AdvReac Intermediate Diarrhea Verified 09/11/23 10:31 METAL AdvReac Mild RASH Uncoded 09/11/23 10:31 Exam Vital Signs (past 8 hours): - 09/11/23 14:22 Temperature 99.4 F Pulse Rate 114 H Respiratory Rate 18 Blood Pressure 144/91 H Pulse Oximetry 97 Oxygen Delivery Method Room Air Oxygen Delivery Method Room Air Narrative Exam Narrative: General elderly frail woman alert oriented Chest nonlabored respiration Abdomen soft Assessment & Plan Assessment and plan (1) Anemia: Status: Inactive Assessment & Plan narrative: 72-year-old woman with cachexia and anemia here for diagnostic upper and lower endoscopy. Technical details were discussed. Risks, benefits, alternatives explained. Risks including but not limited to myocardial infarction, aspiration, bleeding, pain, missed lesion, incomplete examination, need for further radiographic studies, intestinal injury, and need for major abdominal surgery were discussed. All questions were answered to their satisfaction, and they are in agreement with this plan. Time-Based Coding :: [TOTAL MINUTES] spent with patient and on the chart (including review of chart, obtaining history, exam, reviewing outside data, placing orders, documenting exam and treatment plan, and counseling patient) on [DATE].
--- NOTE | 2023-09-11 15:45 | PM.OP.EC ---
Operative Date/Time/Diagnoses Date of procedure: 09/11/23 Time of procedure: 15:45 Pre-op diagnosis: Anemia Post-op diagnosis: other (Gastritis) Procedure & Clinicians Study performed: Esophagogastroduodenoscopy and sigmoidoscopy Same procedure as scheduled: Yes Indications: 72-year-old woman with anemia here for diagnostic upper and lower endoscopy Surgeon: Rajiv Stern Procedure Notes Procedure in detail: The history and physical was performed/updated and the patient is ASA class is 3. The procedure was discussed in detail with the patient. Potential risks complications including infection, bleeding, missed diagnosis, perforation, need for surgery, and were explained. Their questions were answered and informed consent was obtained. Patient placed in left lateral decubitus position. Time out was performed. Procedural sedation was administered by Anesthesia. A bite block was placed. the scope was inserted into the mouth and advanced through the esophagus and into the stomach. the pylorus was intubated and the duodenum was examined to the 2nd portion.. The scope was retroflexed within the stomach. The stomach was then decompressed and scope pulled back to the GE junction. The scope was then removed Examination began with a thorough inspection of the perianal area there was no evidence of fissures, fistulae, external hemorrhoids or cutaneous malignancy. The colonoscopy scope was then placed into the anal canal and was advanced forward. We reached the level of the sigmoid colon. We could not travel any further forward due to the tortuosity of the colon. At this point the procedure was aborted and the scope was slowly withdrawn examining the mucosa. FINDINGS -unremarkable esophagus. -diffuse gastritis with clots throughout the entirety of the stomach. No active hemorrhage. -duodenitis -unremarkable sigmoid colon Biopsies of the stomach and duodenum were performed with forceps The patient tolerated the procedure well. They will be discharged once criteria are met. The prep was of good/excellent quality. Findings: gastritis Impression: Gastritis Post-procedure Plan for aftercare: Start omeprazole 20 mg twice daily x1 month If anemia fails to improve after treatment of gastritis can consider further evaluation of colon Disposition: same day surgery
[2023-09-11 15:46] VITALS: BP 146/88; PULSE 107; RESP 16; TEMP 36.4; O2SAT 96
[2023-09-11 15:51] VITALS: BP 160/87; PULSE 106; RESP 22; O2SAT 96
[2023-09-11 15:58] VITALS: BP 149/90; PULSE 107; RESP 16; TEMP 36.4; O2SAT 96
[2023-09-11 16:02] VITALS: BP 146/96; PULSE 105; RESP 19; O2SAT 99
== END 2023-09-11 16:16 | disposition home or self-care (01) ==
PROVIDERS: Family Provider Family Medicine; PCP Family Medicine; Referring Provider Surgery; Visit Provider Surgery
PROC: 0DJ08ZZ Inspection of Upper Intestinal Tract, Via Natural or Artificial Opening Endoscopic (ICD-10-PCS; CPT 45378; principal; 2023-09-11 14:45)
PROC: 0DJD8ZZ Inspection of Lower Intestinal Tract, Via Natural or Artificial Opening Endoscopic (ICD-10-PCS; CPT 45378; 2023-09-11 14:45)
DX: D64.9 Anemia, unspecified (principal); K29.70 Gastritis, unspecified, without bleeding; K29.80 Duodenitis without bleeding; Z53.09 Procedure and treatment not carried out because of other contraindication
CPT/HCPCS: 45378; 43239; J2704